=== PATIENT | female | born 1950 | race African-American/Black ===

== ENCOUNTER 2017-08-21 14:16 | Emergency (ER) | payer MEDICARE, MEDICAID ==
[~2017-08-21 14:16] MED LIST: ISOVUE-370 76%-LOCM 1 ML ONE
[2017-08-21 15:34] LABS: #Basophils 0.1 thou/uL (0.0-0.2); #Eosinphils 0.2 thou/uL (0.0-0.7); #Monocytes 0.5 thou/uL (0.11-0.59); #Neutrophils 4.2 thou/uL (1.40-6.50); %Basophils 1.1 % (0.0-1.0); %Lymphocytes 28.4 % (21.0-51.0); %Monocytes 7.4 % (0.0-10.0); %Neutrophils 60.1 % (42.0-75.0); Hemoglobin 12.4 g/dL (12.0-16.0); Mean Corpuscular HGB CONC 33.1 g/dL (32.0-36.0); Mean Corpuscular Hemoglobin 31.5 pg (27.0-31.0); Mean Corpuscular Volume 95.1 fl (81.0-99.0); Mean Platelet Volume 7.4 fL (7.4-10.4); Platelet Count 204 thou/uL (130-400); RBC Distribution Width 11.6 % (11.5-14.5); Red Blood Cell (RBC) Count 3.94 mill/uL (4.20-5.40)
[2017-08-21 15:55] LABS: ALT (SGPT) 12 U/L (8-55); AST (SGOT) 15 U/L (5-34); Alkaline Phosphatase 90 U/L (40-150); Anion Gap 11 mmol/L (10-20); BUN (Urea Nitrogen) 16 mg/dL (9.8-20.1); Bilirubin, Total 0.5 mg/dL (0.2-1.2); CK (CPK) 143 U/L (29-168); Calc. Creatinine Clearance 0 mL/min (70-130); Calcium 9.6 mg/dL (7.8-10.44); Carbon Dioxide 30 mmol/L (23-31); Chloride 105 mmol/L (98-107); Estimated GFR-MDRD Greater than 90; Globulin 3.2 g/dL (2.4-3.5); Glucose 98 mg/dL (80-115); Lipase 27 U/L (8-78); Potassium 3.2 mmol/L (3.5-5.1); Protein, Total 7.2 g/dL (6.0-8.3); Sodium 143 mmol/L (136-145)
[2017-08-21 15:59] LABS: CKMB 1.5 ng/mL (0-6.6); Troponin I Less than 0.010 ng/mL (< 0.028)
--- NOTE | 2017-08-21 17:05 | RAD ---
CHEST ONE VIEW 08/21/17 HISTORY: Chest pain. Chest radiograph 06/18/16. FINDINGS: three lead AICD/pacer is similar. No focal air space consolidation, pneumothorax or effusion. Calcifi c tendinosis left rotator cuff. There is sclerosis of the right humeral head which may reflect a healing fracture. IMPRESSION: No acute intrathoracic abnormality. POS: [facility]
--- NOTE | 2017-08-21 19:26 | CT ---
CTA THORAX WITH IV CONTRAST AND 3D REFORMATTED IMAGIN08/21/17 INDICATION: Cough with chills. COMPARISON: CT of the chest dated 06/18/16 and 01/23/02. There are patchy air space opacities within the right lower lobe suspicious for a pneumonitis. Mildly prominent right hilar and right mediastinal lymph nodes are stable. one of the most prominent seen w ithin the right infrahilar region measuring 1.8 cm which is stable from 06/18/16 and likely in 01/23/02 and upon most respective review. There are tiny sub 4 mm pulmonary nodules within the right lung whic h are stable. There is some reflux of contrast within the hepatic veins and IVC. The gallbladder is s urgically absent. No definite acute osseous abnormality is evident. IMPRESSION: 1. No central or segmental pulmonary embolus. 2. Patchy opacities within the right lower lobe suspicious for pneumonitis, infectious or inflam matory etiology. 3. Stable lymphadenopathy of the right hilar and right mediastinal region. The right infrahilar enlarged lymph node may have been present on a comparison in 2001 but due to slice thickness and slig ht variations in technique, difficult to fully confirm. Would recommend a followup examination in six months to document stability of the lymphadenopathy. 4. Findings as above. POS: [facility]
[2017-08-21 19:40] LABS: Bilirubin Small (Negative); Blood, Urine Negative (Negative); Clarity CLEAR (Clear); Glucose, Urine (Dipstick) Negative (Negative); Leukocyte Negative (Negative); Nitrite Negative (Negative); Protein, Urine (Dipstick) 30 mg/dL (Neg-Trace); pH, Urine 5.5 (5.0-9.0)
[2017-08-21 19:46] LABS: Bacteria/HPF None Seen HPF (None Seen); WBC/HPF 0-3 HPF (0-3)
[2017-08-21 19:47] LABS: Pathc Cast-AUWi Flag 5.27 (0-2.49)
[2017-08-21 19:55] LABS: Other Casts/LPF None Seen LPF (0-3 Hyaline); Oval Fat Bodies/HPF None Seen HPF (None Seen); Trichomonas/HPF None Seen HPF (None Seen); Yeast-All Forms None Seen HPF (None Seen)
[2017-08-21 20:11] LABS: Specific Gravity, Urine 1.086 (1.002-1.036)
== END 2017-08-21 21:40 | disposition home or self-care (01) ==
LOC: ERS 14:16
DX: J18.9 Pneumonia, unspecified organism (principal); I11.0 Hypertensive heart disease with heart failure; I50.9 Heart failure, unspecified; K21.9 Gastro-esophageal reflux disease without esophagitis; Z79.899 Other long term (current) drug therapy; Z79.82 Long term (current) use of aspirin
CPT/HCPCS: 36415; 71045; 71275; 80053; 81003; 81015; 82550; 82553; 83690; 83880; 84484; 85025; 85379; 93005; 94760; 96360

== ENCOUNTER 2017-08-22 21:33 | Emergency (ER) | payer MEDICARE, MEDICAID ==
[2017-08-22] MEDS ORDERED: Dexamethasone 10 MG/ML VIAL ONE (22:53)
--- NOTE | 2017-09-24 14:58 | EKG ---
Test Reason : Blood Pressure : / mmHG Vent. Rate : 076 BPM Atrial Rate : 076 BPM P-R Int : 214 ms QRS Dur : 106 ms QT Int : 378 ms P-R-T Axes : 061 012 032 degrees QTc Int : 425 ms Sinus rhythm with 1st degree A-V block Low voltage QRS Incomplete left bundle branch block Nonspecific T wave abnormality Abnormal ECG Confirmed by NICK BATISTA, RODNEY ([id number]), web editor MANE PÉREZ ([id number]) on 09/24/2017 2:57:23 PM Referred By: Confirmed By:RODNEY ROMERO MD
== END 2017-08-22 23:22 | disposition home or self-care (01) ==
LOC: ERS 21:33
DX: J18.9 Pneumonia, unspecified organism (principal); Z91.14 Patient's other noncompliance with medication regimen; I11.0 Hypertensive heart disease with heart failure; I50.9 Heart failure, unspecified; K21.9 Gastro-esophageal reflux disease without esophagitis
CPT/HCPCS: 93005; 96374; 96375; J0696; J1100

== ENCOUNTER 2017-08-27 10:45 | Observation (INO) | payer MEDICARE, MEDICAID ==
[2017-08-27 11:32] LABS: #Eosinphils 0.1 thou/uL (0.0-0.7); #Lymphocytes 3.3 thou/uL (1.20-3.40); #Monocytes 0.8 thou/uL (0.11-0.59); #Neutrophils 4.8 thou/uL (1.40-6.50); %Basophils 0.4 % (0.0-1.0); %Eosinophils 0.6 % (0.0-10.0); %Lymphocytes 36.9 % (21.0-51.0); %Monocytes 8.9 % (0.0-10.0); %Neutrophils 53.2 % (42.0-75.0); Hemoglobin 12.5 g/dL (12.0-16.0); Mean Corpuscular HGB CONC 32.9 g/dL (32.0-36.0); Mean Corpuscular Hemoglobin 31.3 pg (27.0-31.0); Mean Corpuscular Volume 95.1 fl (81.0-99.0); Mean Platelet Volume 7.3 fL (7.4-10.4); Platelet Count 259 thou/uL (130-400); RBC Distribution Width 11.6 % (11.5-14.5); Red Blood Cell (RBC) Count 3.98 mill/uL (4.20-5.40)
[2017-08-27 11:57] LABS: CKMB 2.7 ng/mL (0-6.6); Troponin I Less than 0.010 ng/mL (< 0.028)
[2017-08-27 12:06] LABS: ALT (SGPT) 30 U/L (8-55); AST (SGOT) 20 U/L (5-34); Albumin 3.7 g/dL (3.4-4.8); Alkaline Phosphatase 71 U/L (40-150); Anion Gap 11 mmol/L (10-20); BUN (Urea Nitrogen) 20 mg/dL (9.8-20.1); Bilirubin, Total 0.3 mg/dL (0.2-1.2); Calc. Creatinine Clearance 0 mL/min (70-130); Calcium 9.2 mg/dL (7.8-10.44); Carbon Dioxide 30 mmol/L (23-31); Chloride 102 mmol/L (98-107); Estimated GFR-MDRD 83; Globulin 2.8 g/dL (2.4-3.5); Glucose 103 mg/dL (80-115); Protein, Total 6.5 g/dL (6.0-8.3); Sodium 140 mmol/L (136-145)
[2017-08-27 12:13] LABS: Potassium 2.9 mmol/L (3.5-5.1)
[2017-08-27] MEDS ORDERED: Potassium Chloride 20 MEQ TAB ONE (13:09)
[2017-08-27] MEDS ORDERED: NS 0.9% w/ 20 MEQ KCL 1,000 ML IV SCH (13:15)
[2017-08-27] MEDS ORDERED: Ondansetron HCl/PF 4 MG/2 ML Vial IVP PRN (17:08)
[2017-08-27] MEDS ORDERED: HYDROcodone/Acetaminophen 5/325 mg Tablet PO PRN (17:08)
[2017-08-27] MEDS ORDERED: Mag-Al 1200 mg/1200 mg/30 ML UDCUP PO PRN (17:08)
[2017-08-27] MEDS ORDERED: hydrALAZINE 20 MG/ML VIAL SLOW IVP PRN (17:08)
[2017-08-27] MEDS ORDERED: NS 0.9% w/ 20 MEQ KCL 1,000 ML/1,000 ML BAG IV SCH (17:08)
[2017-08-27] MEDS ORDERED: Ondansetron ODT 4 MG TAB PO PRN (17:08)
[2017-08-27] MEDS ORDERED: Acetaminophen 325 MG TAB PO PRN (17:08)
[2017-08-27 17:22] VITALS: BMI 33.1
[2017-08-27] MEDS ORDERED: Potassium Chloride 20 MEQ TAB PO SCH (17:45)
--- NOTE | 2017-08-27 18:41 | HP ---
PRIMARY CARE PHYSICIAN: Dr. Cooley. CHIEF COMPLAINT: "Palpitations and sticking feeling in my chest." HISTORY OF PRESENT ILLNESS: Ms. Epstein is a very pleasant 67-year-old female, who has a history of no nischemic cardiomyopathy. She was in her usual state of health until one day prior to admission. Juan reid says she felt a pinprick like sensation in her chest like it was sticking and this happened about 4 times yesterday. She says that when it happened she felt dizzy and got lightheaded. It happened ag ain about 5:45 in the morning, it actually woke her from sleep. She felt a sticking sensation in her chest again and she got up to go to the bathroom and felt dizzy and very drained. She said this was really unusual and she felt she should come to the hospital to get it checked out. In the ER, she w as evaluated and it was found that her potassium was low at 2.9 and there was concern that she may hernandez ve had an arrhythmia. Her AICD was interrogated and it was found that she had a significant run of v entricular tachycardia yesterday and for this reason she is being placed in observation. The patient also notes that about a week ago, she was seen in the hospital due to cough and congestion. A CT an giogram was done at that time and she was found to have a pneumonia. She says that she has been donato demetrio with antibiotics, Levaquin, which she had in her purse and says that since she has been sick with pneumonia. She admits to having a poor appetite and poor oral intake. She is also on Lasix, but sa ys that she did skip the medications because she had been feeling well. She denies any nausea or vom iting, however. She also denies any diarrhea. She does say that her appetite has returned and she i s very hungry and feels like eating and basically does not have any symptoms at this time. REVIEW OF SYSTEMS: Constitutional: No fevers, chills, no night sweats, no weight loss. HEENT: She denies any headache, but she has had some dizziness and feeling lightheaded, no sore throat, no rhin orrhea, no neck pain, no adenopathy. Pulmonary: No hemoptysis, no cough, no wheezing. Cardiovascul ar: She denies any chest pain, no shortness of breath, no PND, no orthopnea except for the pinpricki ng sensation and occasional palpitation. Gastrointestinal: There has been no nausea, but she did hernandez ve some vomiting yesterday, no diarrhea, no blood in the stools, no hematemesis. Genitourinary: No urinary frequency, hematuria, no hesitancy. Neurologic: No focal weakness, numbness, no seizures. Psychiatric: No symptoms of anxiety or depression. Skin and Integument: No skin changes. No rash. PAST MEDICAL HISTORY: Significant for nonischemic cardiomyopathy with an ejection fraction of 35% to 40%, hypertension, hyperlipidemia, gastroesophageal reflux disease, obesity. PAST SURGICAL HISTORY: She has had an AICD placed in 2011 and a revision in 2016. She has had a car diac catheterization, which showed no flow-limiting disease. She has also had a cholecystectomy. ALLERGIES: CITRUS, but no drug allergies. SOCIAL HISTORY: She is a former smoker. She says she quit in 2006 cold , denies any alcohol u se. She is and has 3 children. Her daughter Magdalena Aguirre, she would like to be h er surrogate decision maker. She would like to stay a F[employer]. FAMILY HISTORY: Significant for heart disease. She has a brother and sister. Brother with the dylan brillator. Sister, she says needs one, but has refused to have one. CURRENT MEDICATIONS: She is on tizanidine 2 mg as needed, prednisone 20 mg taper, Levaquin 750 mg da sarah, Furosemide 20 mg daily. She is also on carvedilol, losartan, potassium, and aspirin. She does not know the doses and she says some type of stomach medicine. PHYSICAL EXAMINATION: GENERAL: She is alert and oriented. She appears to be in no acute distress. VITAL SIGNS: Blood pressure was 93/62, heart rate 62, respiratory rate of 14, temperature is 98.6. HEENT: Pupils are equal, round, and reactive. Extraocular muscles are intact. Her sclerae are anic teric. Throat: There is no erythema, no exudates. NECK: No adenopathy, no bruits. LUNGS: Clear to auscultation. I did not appreciate any wheezing or rales, no rhonchi. CARDIOVASCULAR: She has a normal S1, S2. I did not appreciate an S3 or S4. No murmurs, clicks or r ubs. ABDOMEN: Obese, it is soft, it is nontender, nondistended. Positive for bowel sounds. There is no rebound, no guarding. EXTREMITIES: No clubbing, cyanosis, no edema. NEUROLOGICALLY: The exam is nonfocal. LABORATORY DATA: White blood cell count is 9, hemoglobin 12.5, hematocrit is 37.9, platelet count is 259. Sodium 140, potassium 2.9, chloride is 102, CO2 is 30, BUN of 20, creatinine 0.83, glucose is 103. Troponin is less than 0.010. ASSESSMENT AND PLAN: This is a pleasant 67-year-old female that presented to the emergency room with a pinpricking like sensation in her chest. Unsure whether or not her AICD had fired and was found t o have some evidence of ventricular tachycardia during this symptomatic period. It is most likely th at the arrhythmias as a result of the low potassium. I suspect her potassium was low due to poor ora l intake and possibly compounded with the vomiting that she experienced, this has since resolved. Sh reid will be placed in observation. She is already on IV fluids with potassium supplementation. We farhad l likely give her a few oral doses as well. We will also check a magnesium level and replace if need ed and reassess her in the a.m. We will hold off on losartan and furosemide while she is on the IV f luids at least for today. These can likely be restarted tomorrow and consult Dr. Sibley tomorrow or one of his colleagues to see if any additional testing or workup need to be done.
[2017-08-27] MEDS: Carvedilol 25 MG TAB PO SCH (20:58)
[2017-08-27] MEDS ORDERED: Latanoprost 0.005% Ophth Soln 2.5 ml Bottle EA EYE SCH (21:00)
[2017-08-27] MEDS: cycloSPORINE 0.05% Ophthalmic Droperette EA EYE SCH (21:00)
[2017-08-27] MEDS: Heparin 5,000 UNITS/ML VIAL SC SCH (21:01)
[2017-08-28 05:24] LABS: Anion Gap 8 mmol/L (10-20); BUN (Urea Nitrogen) 20 mg/dL (9.8-20.1); Calc. Creatinine Clearance 106 mL/min (70-130); Calcium 8.2 mg/dL (7.8-10.44); Carbon Dioxide 29 mmol/L (23-31); Chloride 106 mmol/L (98-107); Estimated GFR-MDRD Greater than 90; Glucose 94 mg/dL (80-115); Potassium 4.1 mmol/L (3.5-5.1); Sodium 139 mmol/L (136-145)
[2017-08-28] MEDS ORDERED: Aspirin 325 mg Enteric Coated Tablet PO SCH (09:00)
[2017-08-28] MEDS ORDERED: Digoxin 0.125 MG TAB PO SCH (09:00)
[2017-08-28] MEDS ORDERED: Losartan 25 MG TAB PO SCH (09:00)
[2017-08-28] MEDS: cycloSPORINE 0.05% Ophthalmic Droperette EA EYE SCH (09:20)
[2017-08-28] MEDS: Potassium Chloride 20 MEQ TAB PO SCH ×2 (10:08→11:13)
[2017-08-28] MEDS: Heparin 5,000 UNITS/ML VIAL SC SCH (11:09)
[2017-08-28] MEDS: Carvedilol 25 MG TAB PO SCH (11:12)
--- NOTE | 2017-08-28 12:22 | PDOC.PN ---
- Subjective Encounter Start Date: 08/28/17 Encounter Start Time: 12:21 Ms. Epstein was seen today in follow-up. She does not have any complaints this morning. - Objective Resuscitation Status: Resuscitation Status FULL:Full Resuscitation MAR Reviewed: Yes Vital Signs & Weight: Vital Signs (12 hours) Temp Pulse Resp BP BP Pulse Ox 08/28/17 11:12 60 08/28/17 08:00 98.0 F 60 16 08/28/17 07:23 98.0 F 60 16 113/62 94 L 08/28/17 03:12 58 L 16 116/59 L 95 Weight Weight 189 lb 9.6 oz I&O: 08/27/17 08/28/17 08/29/17 06:59 06:59 06:59 Intake Total 652 Output Total 200 Balance 452 Result Diagrams: 08/27/17 11:23 08/28/17 04:12 Phys Exam - Physical Examination HEENT: PERRLA Respiratory: no wheezing, no rales, no rhonchi, clear to auscultation bilateral Cardiovascular: RRR, no significant murmur, no rub Gastrointestinal: soft, non-tender, no distention, positive bowel sounds Musculoskeletal: no edema Dx/Plan (1) Hypokalemia Code(s): E87.6 - HYPOKALEMIA Status: Acute (2) Chronic systolic heart failure Code(s): I50.22 - CHRONIC SYSTOLIC (CONGESTIVE) HEART FAILURE Status: Acute (3) Hyperlipidemia Code(s): E78.5 - HYPERLIPIDEMIA, UNSPECIFIED Status: Chronic (4) Hypertension Code(s): I10 - ESSENTIAL (PRIMARY) HYPERTENSION Status: Chronic - Plan * Hypokalemia- ? etiology could be related to diuretics and poor oral intake? * Arrhythmia- discussed with Dr. Bui- she is stable for discharge home. .
[2017-08-28 13:00] VITALS: BP 115/59; TEMP 97.8
--- NOTE | 2017-08-28 18:37 | CON ---
DATE OF CONSULTATION: 08/28/2017 CARDIOLOGY CONSULT NOTE DATE OF ADMISSION: 08/27/2017 INDICATION FOR CONSULTATION: This is a 67-year-old female with a history of nonischemic cardiomyopat hy, admitted with atypical type chest discomfort and also coughing. HISTORY OF PRESENT ILLNESS: This very unfortunate 67-year-old female who has a history of nonischemi c cardiomyopathy says she had a cardiac catheterization in 1987, which then had no evidence of signif icant coronary artery disease. She underwent an AICD implant due to nonischemic cardiomyopathy with decrease in ejection fraction. She has been followed by the greige goods examiner as well as by Dr. Lore bailey in the past. She has had no significant abnormalities. She has had no shocks from the AICD. R ecently, she had a pneumonia and had increasing coughing. When she presented to hospital, she had 2 episodes of significant diaphoresis and said she became somewhat nervous. When she arrived here, she was found to have hypokalemia with a potassium of 2.9. Interrogation of the device did show evidenc e of some short runs of nonsustained ventricular tachycardia, the longest was about 6 beats. She als o had what appeared to be possible atrial tachycardia which could have been atrial fibrillation or fl utter, but appeared to be very regular and may have actually been some artifact, although device may be trying to pace terminate, uncertain as to exactly whether or not she has a device that would pace terminate atrial fibrillation or not, actually would not be pace termination of atrial fibrillation, but may help prevent further atrial fibrillation by pacing, but did not appear to be the situation at this time. Otherwise, she has had no significant problems. She did complain of some sticking type sensation in the chest with some sharp shooting pains down the left arm, but these have since resolve d and she denies any significant complaints at this time. She has not been eating very well recently due to her recent pneumonia and she has also been drinking as much fluids, but has been continuing t o take her medications and this may be the etiology of some of her hypokalemia, but this appears to h ave corrected itself. Her potassium now is 4.1. She has no other significant abnormalities on the l aboratory data. Her cardiac enzymes are negative. Her EKG shows a normal sinus rhythm with occasion al pacing and ventricular sensing. Occasionally, she does have some ventricular pacing. Otherwise, AICD interrogation appears to be normal. Actually, her last change out was in 2016 and since that ti me has been doing quite well. PAST MEDICAL HISTORY: Significant for the nonischemic cardiomyopathy with history of hypertension, h yperlipidemia, gastroesophageal reflux disease, history of AICD implant. Ejection fraction was last reported at 35%-40%. ALLERGIES: She states she has allergies or problems with sutures, but no known drug allergies. MEDICATIONS: Prior to admission included aspirin, ophthalmic drops, Coreg 12.5 mg b.i.d., potassium 10 mEq daily, furosemide 20 mg b.i.d., losartan 25 mg a day, digoxin 0.125 mg half a tablet daily, le vofloxacin 750 mg a day which she has been on due to her recent pneumonia and she was taking codeine for her cough. SOCIAL HISTORY: She smoked in the past, but stopped in 2006. She has no significant alcohol use. S he has 3 children who are alive and well. FAMILY HISTORY: Positive for coronary artery disease. She also has a brother with cardiomyopathy an d a defibrillator. Her sister also has probably cardiomyopathy, but has refused to undergo an AICD i mplant. REVIEW OF SYSTEMS: She had no new HEENT complaints. She does complain of occasional blurred vision, but nothing new. She said this has been ongoing situation. She wears glasses. Chest: She complai burton of cough and some occasional shortness of breath, but otherwise no hemoptysis. She had no GI com plaints such as chronic nausea, vomiting or diarrhea. She had no complaints, dysuria or hematuria . Musculoskeletal: No lower extremity edema, no claudication. Neurologically, no history of seizur es or syncope. PHYSICAL EXAMINATION: GENERAL: Reveals a well-developed, well-nourished female who is in no acute distress. VITAL SIGNS: Her blood pressure is 116/59, heart rate is 60 and regular. She is afebrile, respirato ry rate 16. HEENT: Shows head to be normocephalic and atraumatic. Carotid pulses are present. There were no br uits. There is no JVD. The thyroid is not enlarged. Oral mucosa is pink and moist. CHEST: I did not hear any rales, rhonchi or wheezing. CARDIOVASCULAR: Exam reveals a regular rate and rhythm at this time. There were no ectopy. There i s no gross murmurs. ABDOMEN: Shows obesity with positive bowel sounds. No organomegaly or masses were noted. No tender ness. EXTREMITIES: Show no clubbing, cyanosis or edema. Pedal pulses are present. NEUROLOGIC: The patient appears to be intact. SKIN: Warm and dry. IMAGING DATA: Her EKG shows a normal sinus rhythm, occasional A pacing and V sensing and occasional ventricular pacing. Interrogation of the pacemaker was within normal limits except for some episodes of nonsustained ventricular tachycardia that was self terminated. There was no evidence of the hank ce pace terminating or no evidence of AICD shocks. There is some question of some atrial tachycardia and this will need to be further evaluated. This can be done as an outpatient by the electrophysiol ogist. IMPRESSION: 1. Nonischemic cardiomyopathy, which appears to be relatively stable. 2. History of atypical chest discomfort with sticking type sensations after pneumonia. There is no indication she has any ischemia. The cardiac enzymes are negative and EKG does not show any evidence of ischemia. She has not had a recent stress test or a cardiac catheterization. This may be someth ing that can be entertained also as an outpatient. She should follow up with Dr. Sibley for further discussion. 3. History of recent pneumonia. She will continue her antibiotics until they are completed. I did not hear any significant abnormalities on the chest on evaluation at this time. 4. History of hypertension. This is under very good control at this time. 5. History of hyperlipidemia. I did not see that she is on any statin medications at this time and these should be reinstated if the cholesterol level is elevated. 6. Hypokalemia. This may be due to her lack of p.o. intake, will need to be followed up as an outpa tient also. Otherwise, the patient appears to be doing quite well and could be discharged home today or tomorrow and can be followed as an outpatient. Would suggest she undergo an echocardiogram if on e has not been done within the last 2-3 months and could consider stress testing or possible cardiac catheterization since she has had her last cardiac catheterization was in 1987. ADDENDUM: Her last echocardiogram on record that I have is from 05/2016, which shows ejection fracti on of 20% to 25%. I did not see anymore recent echoes, I would suggest she undergo a more recent ech ocardiogram. This has been over a year ago. Her last stress test on record was in 04/2015, which sh owed ejection fraction 38% and no evidence of ischemia.
--- NOTE | 2017-08-28 21:14 | DIS ---
PRIMARY CARE PHYSICIAN: Dr. Cooley. DATE OF ADMISSION: 08/27/2017 DATE OF DISCHARGE: 08/28/2017 DISCHARGE DISPOSITION: Home. PRIMARY DISCHARGE DIAGNOSES: 1. Hypokalemia, questionable etiology. 2. Arrhythmia, likely secondary to #1. 3. Chronic systolic heart failure, the last ejection fraction was approximately 20% to 25% by echo i n 05/2016. 4. Hypertension. 5. Hyperlipidemia. 6. History of gastroesophageal reflux disease. DISCHARGE MEDICATIONS: Include aspirin 325 mg daily, carvedilol 12.5 mg twice a day, digoxin 0.5 mg daily, furosemide 20 mg twice a day, latanoprost 2.5 mg 1 drop in each eye at bedtime, Levaquin 750 m g daily, losartan 25 mg daily, potassium chloride 10 mEq daily, and Restasis 1 drop to each eye twice a day. CODE STATUS: FULL CODE. ALLERGIES: CITRUS DERIVATIVES. HOSPITAL COURSE: Ms. Epstein is a pleasant 67-year-old female, who presented to the emergency room aft er she noticed some pinprick like pains in her chest as well as having palpitations. She was evaluat ed in the emergency room and had the defibrillator interrogated and it appeared as if she had what ap peared to be ventricular tachycardia. It was also noted that her potassium was low at 2.9. For this reason, she was placed in observation. Her potassium was replaced. Magnesium level was checked and was normal. It is unclear why her potassium is low. However, she had recently been diagnosed with pneumonia and has had poor oral intake and had continued to take her Lasix. It is possible that this may have precipitated the low potassium level, and it is felt that the low potassium is what trigger ed the arrhythmia that she experienced. She was seen by Cardiology personnel clerk and it was felt that she should follow up with the chief digital media officer to further delineate the rhythm disturbance that she ex perienced. However, now that her potassium was replaced. This could be done on an outpatient basis and therefore she was discharged home to have close outpatient followup and she was instructed to hav e her primary care physician, recheck her potassium at that time.
== END 2017-08-28 13:47 | disposition home or self-care (01) ==
LOC: ERS 10:45 → 2SW 17:02
PROVIDERS: ADMIT Internal Medicine; ATTEND Internal Medicine
DX: E87.6 Hypokalemia (principal); I49.9 Cardiac arrhythmia, unspecified; I11.0 Hypertensive heart disease with heart failure; I50.22 Chronic systolic (congestive) heart failure; E78.5 Hyperlipidemia, unspecified; K21.9 Gastro-esophageal reflux disease without esophagitis; I42.8 Other cardiomyopathies; R07.89 Other chest pain; E66.9 Obesity, unspecified; Z68.35 Body mass index [BMI] 35.0-35.9, adult; Z79.52 Long term (current) use of systemic steroids; Z79.2 Long term (current) use of antibiotics; Z79.82 Long term (current) use of aspirin; Z79.899 Other long term (current) drug therapy; Z91.018 Allergy to other foods; Z95.810 Presence of automatic (implantable) cardiac defibrillator; Z90.49 Acquired absence of other specified parts of digestive tract; Z98.890 Other specified postprocedural states; Z87.891 Personal history of nicotine dependence; Z87.01 Personal history of pneumonia (recurrent)
CPT/HCPCS: 80048; 80053; 82553; 83735; 84484; 85025; 93005; 96361 ×2; 96374; 97139; 99285; G0378 ×2; 36415; J1644

== ENCOUNTER 2017-11-19 08:37 | Emergency (ER) | payer MEDICARE, MEDICAID ==
[2017-11-19] MEDS ORDERED: Acetaminophen 500 MG TAB ONE (09:55)
[2017-11-19 10:02] LABS: Hemoglobin 12.7 g/dL (12.0-16.0); Mean Corpuscular HGB CONC 33.3 g/dL (32.0-36.0); Mean Corpuscular Hemoglobin 30.8 pg (27.0-31.0); Mean Corpuscular Volume 92.6 fL (78.0-98.0); Mean Platelet Volume 7.4 fL (7.4-10.4); Platelet Count 187 thou/uL (130-400); RBC Distribution Width 11.5 % (11.5-14.5); Red Blood Cell (RBC) Count 4.13 mill/uL (4.20-5.40); White Blood Cell (WBC) Count 4.5 thou/uL (4.8-10.8)
[2017-11-19 10:24] LABS: ALT (SGPT) Less than 7 U/L (8-55); AST (SGOT) 13 U/L (5-34); Alkaline Phosphatase 80 U/L (40-150); Anion Gap 11 mmol/L (10-20); BUN (Urea Nitrogen) 15 mg/dL (9.8-20.1); Bilirubin, Total 0.4 mg/dL (0.2-1.2); Calc. Creatinine Clearance 0 mL/min (70-130); Calcium 9.6 mg/dL (7.8-10.44); Carbon Dioxide 27 mmol/L (23-31); Chloride 102 mmol/L (98-107); Estimated GFR-MDRD Greater than 90; Globulin 2.8 g/dL (2.4-3.5); Glucose 86 mg/dL (80-115); Potassium 3.7 mmol/L (3.5-5.1); Protein, Total 6.8 g/dL (6.0-8.3); Sodium 136 mmol/L (136-145)
[2017-11-19 10:28] LABS: CKMB 1.7 ng/mL (0-6.6); Troponin I Less than 0.010 ng/mL (< 0.028)
[2017-11-19 10:30] LABS: Band 1 % (5-11); Eosinophils 3 % (0-10); Lymphocytes 61 % (21-51); MDiff Complete? YES; Monocytes 8 % (0-10); Neutrophil 27 % (42-75); RBC Morphology Normal
--- NOTE | 2017-11-19 11:04 | CT ---
CT BRAIN WITHOUT CONTRAST: Date: 11/19/17 HISTORY: Intermittent headache. Changes in sensation to the left cheek. Tingling in the left upper arm and dif ficulty swallowing. FINDINGS: No evidence of acute infarct, hemorrhage, midline shift, or abnormal extra-axial fluid collections ar e seen. The ventricular size is normal and the basilar cisterns are patent. The bony calvarium is int act. The visualized paranasal sinuses and mastoid air cells are well aerated. IMPRESSION: No CT evidence of acute intracranial process. POS: [facility]
== END 2017-11-19 12:12 | disposition home or self-care (01) ==
LOC: ERS 08:37
DX: R51 Headache (principal); K21.9 Gastro-esophageal reflux disease without esophagitis; I50.9 Heart failure, unspecified; I11.0 Hypertensive heart disease with heart failure; Z79.82 Long term (current) use of aspirin; Z79.899 Other long term (current) drug therapy; Z87.891 Personal history of nicotine dependence
CPT/HCPCS: 36415; 70450; 80053; 82553; 84484; 85025; 85652; 93005

== ENCOUNTER 2017-12-27 09:46 | Outpatient (CLI) | payer MEDICARE | END 2017-12-27 09:47 | disposition home or self-care (01) | LOC: BICMAMMO 09:46 | PROVIDERS: ATTEND Family Medicine | DX: Z13.820 Encounter for screening for osteoporosis (principal); M85.88 Other specified disorders of bone density and structure, other site; Z78.0 Asymptomatic menopausal state | CPT/HCPCS: 77080 ==

== ENCOUNTER 2018-01-28 10:38 | Outpatient (CLI) | payer MEDICARE, MEDICAID | END 2018-01-28 10:39 | disposition home or self-care (01) | LOC: BICMAMMO 10:38 | PROVIDERS: ATTEND Family Medicine | DX: Z12.31 Encounter for screening mammogram for malignant neoplasm of breast (principal); N63.21 Unspecified lump in the left breast, upper outer quadrant | CPT/HCPCS: 77063; 77067 ==

== ENCOUNTER 2018-03-19 09:18 | Emergency (ER) | payer MEDICARE, OTHER ==
[2018-03-19 10:26] LABS: #Eosinphils 0.4 thou/uL (0.0-0.7); #Monocytes 0.7 thou/uL (0.11-0.59); #Neutrophils 5.8 thou/uL (1.40-6.50); %Basophils 0.2 % (0.0-1.0); %Eosinophils 4.1 % (0.0-10.0); %Lymphocytes 22.5 % (21.0-51.0); %Monocytes 7.9 % (0.0-10.0); %Neutrophils 65.2 % (42.0-75.0); Mean Corpuscular HGB CONC 31.8 g/dL (32.0-36.0); Mean Corpuscular Volume 94.4 fL (78.0-98.0); Mean Platelet Volume 8.3 fL (7.4-10.4); Platelet Count 250 thou/uL (130-400); RBC Distribution Width 12.2 % (11.5-14.5); White Blood Cell (WBC) Count 8.9 thou/uL (4.8-10.8)
[2018-03-19 10:47] LABS: ALT (SGPT) 9 U/L (8-55); AST (SGOT) 16 U/L (5-34); Albumin 4.2 g/dL (3.4-4.8); Alkaline Phosphatase 78 U/L (40-150); Anion Gap 12 mmol/L (10-20); BUN (Urea Nitrogen) 13 mg/dL (9.8-20.1); Bilirubin, Total 0.8 mg/dL (0.2-1.2); Calc. Creatinine Clearance 0 mL/min (70-130); Calcium 9.9 mg/dL (7.8-10.44); Carbon Dioxide 26 mmol/L (23-31); Chloride 105 mmol/L (98-107); Estimated GFR-MDRD Greater than 90; Globulin 3.2 g/dL (2.4-3.5); Glucose 94 mg/dL (80-115); Potassium 3.5 mmol/L (3.5-5.1); Protein, Total 7.4 g/dL (6.0-8.3); Sodium 139 mmol/L (136-145)
[2018-03-19 10:50] LABS: CKMB 2.4 ng/mL (0-6.6)
--- NOTE | 2018-03-19 10:55 | RAD ---
2 VIEWS CHEST: Date: 03/19/18 PROVIDED CLINICAL HISTORY: Productive cough. FINDINGS: Comparison with 08/21/17. Cardiac silhouette remains enlarged. Left subclavian cardiac pacing device is redemonstrated in stabl e position. No focal consolidation, pleural fluid, or pneumothorax apparent. Surgical clips overlie t he upper abdomen on the lateral view. IMPRESSION: No evidence for an acute cardiopulmonary process. POS: [facility]
== END 2018-03-19 11:29 | disposition home or self-care (01) ==
LOC: ERS 09:18
DX: J40 Bronchitis, not specified as acute or chronic (principal); I11.0 Hypertensive heart disease with heart failure; I50.9 Heart failure, unspecified; Z87.891 Personal history of nicotine dependence; Z79.899 Other long term (current) drug therapy
CPT/HCPCS: 71046; 80053; 82553; 83880; 84484; 85025; 93005; 94640; 94760; J7620

== ENCOUNTER 2018-06-01 15:16 | Inpatient (IN) | payer MEDICARE, OTHER ==
[2018-06-01 15:53] LABS: #Basophils 0.1 thou/uL (0.0-0.2); #Eosinphils 0.4 thou/uL (0.0-0.7); #Lymphocytes 2.2 thou/uL (1.20-3.40); #Monocytes 0.4 thou/uL (0.11-0.59); #Neutrophils 1.8 thou/uL (1.40-6.50); %Basophils 1.1 % (0.0-1.0); %Eosinophils 7.2 % (0.0-10.0); %Lymphocytes 45.5 % (21.0-51.0); %Monocytes 8.7 % (0.0-10.0); %Neutrophils 37.6 % (42.0-75.0); Mean Corpuscular HGB CONC 33.3 g/dL (32.0-36.0); Mean Corpuscular Hemoglobin 30.9 pg (27.0-31.0); Mean Corpuscular Volume 92.8 fL (78.0-98.0); Mean Platelet Volume 8.3 fL (7.4-10.4); Platelet Count 191 thou/uL (130-400); RBC Distribution Width 11.6 % (11.5-14.5); Red Blood Cell (RBC) Count 4.22 mill/uL (4.20-5.40); White Blood Cell (WBC) Count 4.9 thou/uL (4.8-10.8)
--- NOTE | 2018-06-01 15:56 | RAD ---
SINGLE VIEW CHEST: Date: 06/01/18 COMPARISON: 03/19/18. HISTORY: Tachycardia. Abnormal firing of cardiac pacemaker. FINDINGS: Single view of the chest shows normal sized cardiomediastinal silhouette. The pacemaker is unchanged in position. There is no evidence of consolidation, mass, or pleural effusion. Degenerative changes a re seen in the spine and shoulders. IMPRESSION: No evidence of acute cardiopulmonary disease. POS: [facility]
[2018-06-01 16:19] LABS: ALT (SGPT) 8 U/L (8-55); AST (SGOT) 13 U/L (5-34); Albumin 3.8 g/dL (3.4-4.8); Alkaline Phosphatase 80 U/L (40-150); Anion Gap 12 mmol/L (10-20); BUN (Urea Nitrogen) 15 mg/dL (9.8-20.1); Bilirubin, Total 0.3 mg/dL (0.2-1.2); Calc. Creatinine Clearance 0 mL/min (70-130); Calcium 9.8 mg/dL (7.8-10.44); Carbon Dioxide 24 mmol/L (23-31); Chloride 106 mmol/L (98-107); Estimated GFR-MDRD 83; Globulin 2.8 g/dL (2.4-3.5); Glucose 116 mg/dL (80-115); Potassium 4.1 mmol/L (3.5-5.1); Protein, Total 6.6 g/dL (6.0-8.3); Sodium 138 mmol/L (136-145)
[2018-06-01 20:30] LABS: Troponin I Less than 0.010 ng/mL (< 0.028)
[2018-06-01] MEDS ORDERED: Enoxaparin Sodium 80 MG/0.8 ML SYRINGE ONE (20:30)
[2018-06-01] MEDS ORDERED: Ondansetron ODT 4 MG TAB SL PRN (21:43)
[2018-06-01] MEDS ORDERED: Ondansetron PF 4 MG/2 ML Vial IVP PRN (21:43)
[2018-06-01 21:45] VITALS: BMI 31.8
[2018-06-01 21:47] LABS: Bilirubin Negative (Negative); Blood, Urine Negative (Negative); Clarity CLEAR (Clear); Glucose, Urine (Dipstick) Negative (Negative); Leukocyte Negative (Negative); Nitrite Negative (Negative); Protein, Urine (Dipstick) Negative (Neg-Trace); Specific Gravity, Urine 1.025 (1.002-1.036); pH, Urine 6.5 (5.0-9.0)
[2018-06-01 23:44] LABS: Troponin I Less than 0.010 ng/mL (< 0.028)
[2018-06-02] MEDS ORDERED: Acetaminophen 325 MG TAB PO PRN (01:43)
[2018-06-02] MEDS ORDERED: Bisacodyl 5 MG TAB PO PRN (01:43)
[2018-06-02] MEDS ORDERED: Bisacodyl 10 MG SUPP PR PRN (01:43)
[2018-06-02] MEDS ORDERED: Senokot S 8.6-50 MG TAB PO PRN (01:43)
[2018-06-02] MEDS ORDERED: Zolpidem Tartrate 5 MG TAB PO PRN (01:43)
[2018-06-02] MEDS ORDERED: Calcium Carbonate 500 MG ChewTAB PO PRN (01:43)
[2018-06-02 05:55] LABS: #Eosinphils 0.4 thou/uL (0.0-0.7); #Lymphocytes 2.1 thou/uL (1.20-3.40); #Monocytes 0.6 thou/uL (0.11-0.59); #Neutrophils 1.5 thou/uL (1.40-6.50); %Basophils 0.7 % (0.0-1.0); %Eosinophils 7.8 % (0.0-10.0); %Lymphocytes 45.5 % (21.0-51.0); %Monocytes 12.9 % (0.0-10.0); %Neutrophils 33.1 % (42.0-75.0); Hemoglobin 11.7 g/dL (12.0-16.0); Mean Corpuscular HGB CONC 31.2 g/dL (32.0-36.0); Mean Corpuscular Hemoglobin 29.3 pg (27.0-31.0); Mean Platelet Volume 8.5 fL (7.4-10.4); Platelet Count 168 thou/uL (130-400); RBC Distribution Width 11.7 % (11.5-14.5); Red Blood Cell (RBC) Count 3.98 mill/uL (4.20-5.40); White Blood Cell (WBC) Count 4.6 thou/uL (4.8-10.8)
[2018-06-02 06:26] LABS: Anion Gap 12 mmol/L (10-20); BUN (Urea Nitrogen) 15 mg/dL (9.8-20.1); Calc. Creatinine Clearance 87 mL/min (70-130); Calcium 9.2 mg/dL (7.8-10.44); Carbon Dioxide 26 mmol/L (23-31); Chloride 107 mmol/L (98-107); Estimated GFR-MDRD Greater than 90; Glucose 96 mg/dL (80-115); Potassium 3.7 mmol/L (3.5-5.1); Sodium 141 mmol/L (136-145)
[2018-06-02] MEDS: Potassium Chloride 10 MEQ TAB PO SCH (08:07)
[2018-06-02] MEDS: Furosemide 20 MG TAB PO SCH ×2 (08:08→13:22)
[2018-06-02] MEDS: Digoxin 0.125 MG TAB PO SCH (08:08)
[2018-06-02] MEDS: Carvedilol 6.25 MG TAB PO SCH ×2 (08:09→20:37)
[2018-06-02] MEDS: Aspirin 325 mg Enteric Coated Tablet PO SCH (08:09)
[2018-06-02] MEDS: Losartan 25 MG TAB PO SCH (08:10)
--- NOTE | 2018-06-02 08:26 | HP ---
CHIEF COMPLAINT: Chest discomfort. HISTORY OF PRESENT ILLNESS: This is a 68-year-old female with past medical history of CHF, GERD, hypertension, presented to our ED with a chief complaint of having a chest discomfort. Per patient, she feels like her defibrillator fired. The patient states that she felt that there was a shock in her heart at 11:00 a.m. on the day of admission. The patient stated that it caused some chest discomfort, it was dull-like pain and that prompted her to come to the ED to be evaluated. At this point, the patient denies any fever, chills, nausea, vomiting, chest pain, palpitation, abdominal pain, constipation, diarrhea, dysuria, hematuria, melena, or hematochezia. Of note, the patient was recently in our hospital on 08/27/2017 with similar episode of having chest discomfort due to possible arrhythmia or shock. At the time, the patient called it a pinprick-like sensation. The patient was admitted and the patient's defibrillator at that time was interrogated since the patient had what appeared to be a ventricular tachycardia. Cardiology was consulted and Cardiology saw the patient during the time and during the whole workup, the patient was also found to have hypokalemia. Per records, since that the patient's arrhythmia was attributed to patient's hypokalemia. The patient felt better and the patient was discharged home. The patient was advised to follow up with the primary care physician to recheck her potassium. REVIEW OF SYSTEM: All systems have been reviewed and at this time, negative. PAST MEDICAL HISTORY: CHF, GERD, and hypertension. PAST SURGICAL HISTORY: Status post AICD placement in 2006, wires rewired in 2011 and 2015. The patient had history of cholecystectomy and hysterectomy, partial. PSYCHIATRIC HISTORY: No previous psych history. SOCIAL HISTORY: The patient denies alcohol use. Denies any illicit drugs and the patient is a former smoker. The patient quit smoking in 2006. FAMILY HISTORY: Reviewed and noncontributory. ALLERGIES: THE PATIENT IS ALLERGIC TO CITRUS AND ITS DERIVATIVES. CURRENT MEDICATIONS: 1. The patient is on carvedilol. 2. The patient is on digoxin. 3. Potassium. 4. Losartan. 5. Furosemide. 6. Aspirin. PHYSICAL EXAMINATION: VITAL SIGNS: The patient's blood pressure is 142/82, pulse of 84, respiratory rate of 18, temperature of 98.7, O2 saturation of 99. GENERAL: The patient is alert and oriented x3, not in acute distress. The patient is lying in bed comfortably. The patient is able to speak to me in full sentences. HEENT: Normocephalic, atraumatic. Pupils are equally round and reactive to light. Extraocular movements are intact. No scleral icterus. No conjunctival pallor. Mucous membranes are moist. NECK: Trachea is midline. Full range of motion. No tracheal deviation. Supple. LUNGS: Clear to auscultation bilaterally. No wheezing, no rales, no rhonchi appreciated. CARDIAC: Positive S1 and S2. Regular rate and rhythm. No murmurs. No gallops. No rubs appreciated. ABDOMEN: Soft, nontender, and nondistended. Positive bowel sounds in all quadrants. No peritoneal signs. No rigidity. No guarding. EXTREMITIES: The patient has 5/5 upper extremity strength. Good pulses bilaterally of the upper extremity and 5/5 lower extremity. No edema noted. Good pulses bilaterally at the lower extremities. NEUROLOGIC: Cranial nerves 2 through 12 grossly intact. No neurologic deficits noted. SKIN: Warm, dry, and intact. PSYCH: The patient has normal affect, alert, oriented x3. Pleasant. DIAGNOSTIC DATA: EK-lead EKG shows ventricular paced rhythm. ED COURSE: The patient received; 1. Lovenox 1 mg/kg. 2. Aspirin 324. LABORATORY DATA: WBC is 4.9, hemoglobin is 13, hematocrit is 39.1, platelets 191. Electrolytes; sodium is 138, potassium is 4.1, chloride is 106, carbon dioxide of 24, anion gap of 12, BUN is 15, creatinine is 0.83, glucose is 116. BNP is 292.7. Troponin has been negative x3. Urinalysis; negative. ASSESSMENT AND PLAN: This is a 68-year-old female, being admitted for; 1. Chest discomfort, likely due to automatic internal cardiac defibrillator event. At this time, the patient is currently stable, does not appear to be in any distress. We have consulted Cardiology, and the patient's defibrillator is going to be interrogated. We will follow up on morning EKG. We will follow up with Cardiology regarding any further recommendations. We will continue the patient on current management of gentle IV hydration. We will continue the patient on her home medications. 2. History of congestive heart failure: At this point, the patient is stable, does not appear to be in any acute heart failure. We will continue the patient's home medications. 3. Hypertension. Currently, we will continue the patient on home medications. The patient's blood pressure is normotensive at this time. We will monitor the patient's blood pressure closely and will treat accordingly. 4. Coronary artery disease, status post AICD. We will continue the patient on home medications. 5. Deep vein thrombosis and gastrointestinal prophylaxis addressed. Job ID: [id number]
[2018-06-02] MEDS ORDERED: Enoxaparin Sodium 40 MG/0.4 ML SYRINGE SC SCH (09:00)
[2018-06-02] MEDS ORDERED: Non-Formulary Item 1 EACH (Carvedilol [Carvedilol] 12.5 MG) PO SCH (09:00)
[2018-06-02] MEDS ORDERED: Furosemide 20 MG TAB PO SCH (09:00)
--- NOTE | 2018-06-02 09:11 | PDOC.PN ---
- Subjective Encounter Start Date: 06/02/18 Encounter Start Time: 09:09 Patient lying in bed, she reports no events over night. Here for possible AICD firing. Cardiology consulted and AICD interrogated. She reports mild chest discomfort that is improved, denies shortness of breath or abdominal pain. She reports going through a rough time with living situation and is currently sleeping in car. - Objective Resuscitation Status - Order Detail: 06/02/18 01:43 Resuscitation Status Routine Resuscitation Status: FULL: Full Resuscitation MAR Reviewed: Yes Vital Signs & Weight: Vital Signs (12 hours) Temp Pulse Resp BP Pulse Ox 06/02/18 08:08 57 L 06/02/18 07:31 98.2 F 57 L 16 95/54 L 97 06/02/18 04:12 97.9 F 62 16 112/62 98 06/01/18 23:00 64 16 127/59 L 100 Weight Weight 171 lb 3.2 oz I&O: 06/01/18 06/02/18 06/03/18 06:59 06:59 06:59 Intake Total 590 Balance 590 Result Diagrams: 06/02/18 05:29 06/02/18 05:29 Radiology Reviewed by me: Yes EKG Reviewed by me: Yes Phys Exam - Physical Examination Constitutional: NAD HEENT: PERRLA, moist MMs, sclera anicteric, oral pharynx no lesions Neck: no nodes, no JVD, supple Respiratory: no wheezing, no rales, no rhonchi, clear to auscultation bilateral Cardiovascular: RRR, no significant murmur, no rub Gastrointestinal: soft, non-tender, no distention, positive bowel sounds Musculoskeletal: no edema, pulses present Neurological: non-focal, normal sensation, moves all 4 limbs Lymphatic: no nodes Psychiatric: normal affect, A&O x 3 Skin: no rash, normal turgor, cap refill <2 seconds Dx/Plan (1) Chronic systolic heart failure Code(s): I50.22 - CHRONIC SYSTOLIC (CONGESTIVE) HEART FAILURE Status: Acute (2) Congestive heart failure Code(s): I50.9 - HEART FAILURE, UNSPECIFIED Status: Chronic (3) GERD (gastroesophageal reflux disease) Code(s): K21.9 - GASTRO-ESOPHAGEAL REFLUX DISEASE WITHOUT ESOPHAGITIS Status: Chronic (4) Hyperlipidemia Code(s): E78.5 - HYPERLIPIDEMIA, UNSPECIFIED Status: Chronic (5) Hypertension Code(s): I10 - ESSENTIAL (PRIMARY) HYPERTENSION Status: Chronic (6) Atypical chest pain Code(s): R07.89 - OTHER CHEST PAIN Status: Acute - Plan cont current plan of care, DVT proph w/lovenox * Continue home medications * Monitor vitals and labs * Cardiology services following * AICD interrogated * Consult placed for egg caser to assist in disposition as she lives in her car
--- NOTE | 2018-06-02 17:19 | EKG ---
Test Reason : Blood Pressure : / mmHG Vent. Rate : 070 BPM Atrial Rate : 070 BPM P-R Int : 258 ms QRS Dur : 092 ms QT Int : 354 ms P-R-T Axes : 072 074 069 degrees QTc Int : 382 ms Sinus rhythm with 1st degree A-V block Low voltage QRS Cannot rule out Anterior infarct , age undetermined Nonspecific ST-T changes Abnormal ECG When compared with ECG of 01-JUN-2018 15:22, (Unconfirmed) Sinus rhythm has replaced Electronic ventricular pacemaker Confirmed by DR. Tammy BAR ([id number]) on 06/02/2018 5:18:57 PM Referred By: JANAE Confirmed By:DR. Tammy BAR
--- NOTE | 2018-06-02 20:29 | CON ---
DATE OF CONSULTATION: 06/02/2018 REFERRING PHYSICIAN: Dr. Kee Tinoco. REASON FOR CONSULTATION: Atrial fibrillation and nonsustained ventricular tachycardia. HISTORY OF PRESENT ILLNESS: Ms. Watson is the patient known to our practice for a history of paroxysmal atrial fibrillation of low burden as well as nonsustained ventricular tachycardia and inclusion of a dual-chamber ICD. She was last seen on April 21, [address] Shipman. At that time, she had low burden atrial fibrillation up to 6 hours. The plan was to initiate Eliquis, but she had very severe headache and she was going to go to the emergency room for further evaluation and head CT before starting her Eliquis. She did not end up going to the emergency room and she did not fill or start her Eliquis. Her nonsustained VT is monitored at this point and treated with continued beta-reddy therapy. She has been minimally symptomatic of her atrial fibrillation in the past. Her ICD was interrogated upon her arrival to [facility] and erratically, she went into a 46-hour episode of atrial fibrillation 6 hours after leaving her last appointment on April 21. It is terminated spontaneously and she has had no recurrences since that time. She continues to have low burden of nonsustained ventricular tachycardia. She did present to the emergency room in atrial fibrillation and converted over the night and is currently in sinus rhythm. She presented to the emergency room for concern of AICD firing with some associated mild chest discomfort. She endorses shortness of breath that has persisted since March and slightly progressive. She denies any heart racing, palpitations, syncope, near syncope, stroke, or stroke-like symptoms. She denies any heart failure symptoms of weight gain or progressive swelling of the extremities. She does report some unintentional weight loss. She has a high stress level currently. She is homeless and living in her car. REVIEW OF SYSTEMS: A 12-point review of systems was conducted and is negative except that listed above in the HPI. PAST MEDICAL HISTORY: 1. Chronic systolic heart failure with nonischemic cardiomyopathy. a. Nuclear scan from 05/22/2015, showing LV ejection fraction of 30% with no ischemia. b. Two-dimensional echo on 04/25/2016 showing LVEF of 35% to 40%. c. Diastolic dysfunction with [id number] tricuspid regurgitation. 2. Dual-chamber Medtronic pacemaker defibrillator placed in 02/2015, atrial lead fracture requiring revision on 02/11/2016. 3. Sinus node dysfunction. 4. Obesity. 5. Hyperlipidemia. 6. Paroxysmal atrial fibrillation, low burden. 7. Nonsustained ventricular tachycardia. ALLERGIES: NONE. MEDICATIONS: Include: 1. Latanoprost 1 drop each eye at bedtime. 2. Digoxin half a tablet p.o. daily. 3. Furosemide 20 mg p.o. b.i.d. 4. Potassium chloride 10 mEq p.o. daily. 5. Losartan potassium 25 mg p.o. daily. 6. Carvedilol 12.5 mg p.o. b.i.d. 7. Aspirin 325 mg p.o. daily. FAMILY HISTORY: Positive for heart disease. Has a brother with a defibrillator. SOCIAL HISTORY: Former smoker, quit in 2006. Denies alcohol use. She is with 3 children. She is a full code. She is currently living in her car. PHYSICAL EXAMINATION: VITAL SIGNS: Temperature 98.3, pulse 62, blood pressure 115/60, and oxygen is 97% on room air. GENERAL: The patient is well groomed, well nourished, alert, and oriented. Speech is clear. Affect is somewhat tearful, but otherwise appropriate and a good historian. HEENT: She is normocephalic and atraumatic. Sclerae anicteric. EOMs are intact. Oral mucosa is moist and pink with adequate dentition. NECK: Supple without jugular venous distention. Thyroid is nonpalpable. LUNGS: Clear to auscultation bilaterally without wheezes, crackles, or rhonchi. Her respirations are even and unlabored. CARDIOVASCULAR: Heart rate is irregularly irregular with crisp S1 and S2. No significant murmur or gallop. Her precordial device that is seated at the left infraclavicular fossa without reaction. ABDOMEN: Soft, nontender, and obese without palpable masses and positive bowel sounds are noted throughout. EXTREMITIES: Warm and dry to touch without clubbing, cyanosis, or edema. NEUROLOGIC: Grossly intact and nonfocal, and gait was not assessed. DATABASE: Telemetry and EKG were all personally reviewed and currently reflect sinus rhythm with ventricular rates in the 60s. There is a limited first degree AV block. Initially, she was in atrial fibrillation with slow ventricular response and frequent RV pacing during her atrial arrhythmia. Device check, the patient has a [employer] Evera XT DR, date of implant is 02/10/2016. Battery longevity is 8.3 years. Lead impedances are stable. Atrial capture threshold 0.65 V at 0.4 milliseconds. RV capture threshold is 1.125 V at 0.4 milliseconds. There was adequate sensing, current mode AAIR to DDDR, lower rate limit of 60. Two episodes of atrial arrhythmias have been detected since last interrogation on 04/21/2018. First one was 47-hour episode starting on 2017. The second one initiated on 05/31/2018 and terminated overnight. Overall, burden is 5.6%, which is largely reflected by that 2-day episode in late March. There have been no ventricular arrhythmias. No shocks. No ATP terminated ventricular arrhythmias. AP is 52.8%, MUD ANALYSIS OPERATOR 3.9%. Ventricular pacing occurs when she is in atrial fibrillation. OptiVol fluid index suggests ongoing fluid accumulation starting in mid April and exceeded 60 ohm threshold in approximately the start of the year. Otherwise, normally functioning device. No reprogramming changes were made. LABORATORY DATA: Hematology was reviewed. WBC 4.6, hemoglobin 11.7, platelet count of 168. Chemistry; potassium 3.7, creatinine 0.76, creatinine clearance calculated is 87 mL per minute. Serial troponins were negative. BNP is 292. TSH 1.9. Chest x-ray on 06/01/2018, no acute cardiopulmonary disease. IMPRESSION: 1. Nonischemic cardiomyopathy. 2. Inclusion of a dual-chamber ICD with normal operation. 3. Paroxysmal atrial fibrillation, low burden, but with single prolonged episode of nearly 48 hours. 4. Chronic headaches. 5. Nonsustained ventricular tachycardia. 6. CHADS-VASc score of 4 on the basis of female gender, age, hypertension, and cardiomyopathy. OAC is indicated, but was not started as prescribed in the past. RECOMMENDATIONS: This woman is doing well from a device standpoint. Her device is functioning normally, and she did not have any ICD discharges. She continues to have low burden of nonsustained ventricular tachycardia. Her atrial fibrillation burden remains quite low at approximately 5% even with a 48-hour episode in the recent past. She is not anticoagulated currently and I suspect that with her current housing that challenges in living in her car that Eliquis would not be an option for her as her resources are quite limited at this time. We will start OAC and hopefully she will be able to continue upon DC. She has cardiomyopathy with severely reduced ejection fraction, ruling out class 1C antiarrhythmic options for AF suppression. Her creatinine clearance and kidney function are well preserved and consideration could be given toward sotalol.The only EKG available in the chart was while she was in a paced rhythm and atrial fibrillation artificially prolonging her QTc. Now, she is in sinus rhythm. I have ordered a 12-lead EKG to get a baseline QTc. If less than 450 milliseconds, then we can initiate sotalol and monitor her for 3 days while initiating this medications to suppress her atrial arrhythmias. I briefly discussed ablation with her as well, which can be further discussed as an outpatient in routine followup. Thank you for allowing us to participate in care of this patient. Job ID: [id number] STEVE
[2018-06-02] MEDS: Latanoprost 0.005% Ophth Soln 2.5 ml Bottle EA EYE SCH (20:37)
[2018-06-02] MEDS: Enoxaparin Sodium 80 MG/0.8 ML SYRINGE SC SCH (20:37)
--- NOTE | 2018-06-03 04:25 | CON ---
DATE OF CONSULTATION: HISTORY OF PRESENT ILLNESS: The patient is a 68-year-old woman who presents with left-sided chest discomfort, was noted to be in a regular heart rhythm. The patient has a history of nonischemic cardiomyopathy. She has previously had placement of an automatic implantable cardiac defibrillator. The patient was here in August with atypical chest discomfort. She presents once again with left-sided chest discomfort. She states that she felt like her AICD had fired. She reports having persistent discomfort. The patient was seen in the emergency room and noted to have regular heart rhythm, and was treated with Lovenox. The patient denies any present chest discomfort. PAST MEDICAL HISTORY: 1. Cardiomyopathy. 2. Hypertension. PAST SURGICAL HISTORY: Cholecystectomy and hysterectomy. SOCIAL HISTORY: Nonsmoker. ALLERGIES: SHE IS ALLERGIC TO CITRUS. MEDICATIONS: Include: 1. Digoxin 0.5 daily. 2. Lasix 20 daily. 3. KCl 10 daily. 4. Losartan 25 daily. 5. Coreg 12.5 b.i.d. 6. Aspirin 81 daily. FAMILY HISTORY: Positive family history of cardiomyopathy. PHYSICAL EXAMINATION: VITAL SIGNS: Elderly woman, in no acute distress with a blood pressure of 115/60. NECK: Showed no jugular venous distention. LUNGS: Clear to auscultation. HEART: Regular rate and rhythm. Normal S1 and S2. No murmurs. ABDOMEN: Distended. EXTREMITIES: Trace edema. VASCULAR: Radial pulses are 2+. LABORATORY RESULTS: Revealed her to have a sodium 141, potassium 3.7, chloride 107, bicarb 26, BUN 15, creatinine 0.76, troponin less than 0.01, BNP is 292. White blood cell count 4.6, hemoglobin 11.7, hematocrit 37.4, and platelets 168. Her EKG revealed her to have atrial fibrillation with ventricular paced response. IMPRESSION: 1. New onset atrial fibrillation. 2. Chest pain, atypical. 3. History of cardiomyopathy. 4. Hypertension. 5. History of AICD placement. This patient presents with new onset atrial fibrillation. We would continue the patient on subcutaneous Lovenox. We will obtain an EP consultation to see whether she should be placed on antiarrhythmic drug, would consider treating the patient with Betapace and she appears to be symptomatic. We will follow this patient with you through her hospitalization. Job ID: [id number]
[2018-06-03] MEDS: Digoxin 0.125 MG TAB PO SCH (08:43)
[2018-06-03] MEDS: Aspirin 325 mg Enteric Coated Tablet PO SCH (08:43)
[2018-06-03] MEDS: Carvedilol 6.25 MG TAB PO SCH ×2 (08:43→20:01)
[2018-06-03] MEDS: Furosemide 20 MG TAB PO SCH ×2 (08:43→16:41)
[2018-06-03] MEDS: Losartan 25 MG TAB PO SCH (08:43)
[2018-06-03] MEDS: Potassium Chloride 10 MEQ TAB PO SCH (08:45)
[2018-06-03] MEDS: Enoxaparin Sodium 80 MG/0.8 ML SYRINGE SC SCH (08:48)
[2018-06-03] MEDS ORDERED: Sotalol HCl 80 MG TAB PO SCH ×2 (10:27→10:45)
--- NOTE | 2018-06-03 15:39 | PDOC.CTH ---
Cardiology Progress Note - Subjective EP PROGRESS NOTE: 06/03/18 Seen as follow up follow up for A.Fib, ICD management and medication management. no new cardiac concerns today. C/o chills and thinks she is getting a cold. - Objective Vital Signs Temp Pulse Resp BP Pulse Ox 06/03/18 11:20 98.7 F 61 18 91/55 L 99 06/03/18 07:28 97.9 F 67 15 133/71 95 06/03/18 04:10 98.6 F 60 13 120/63 97 Weight 171 lb 3.2 oz 06/02/18 06/03/18 06/04/18 06:59 06:59 06:59 Intake Total 590 1280 Output Total 1375 900 Balance 590 -95 -900 - Physical Examination General/Neuro: alert & oriented x3, NAD, other: (chills) Neck: carotid US brisk, no JVD present Lungs: CTA, unlabored respirations Heart: PMI normal, RRR Abdomen: NT/ND, soft - Telemetry Telemetry Rhythm: SR - Labs Result Diagrams: 06/02/18 05:29 06/02/18 05:29 Troponin/CKMB Troponin I Less than 0.010 ng/mL (< 0.028) 06/01/18 22:39 - Assessment/Plan 1. Paroxysmal atrial fibrillation -starting sotalol tonight. Baseline QTc <400ms. Needs 12 lead EKG 2 hrs after first 6 doses of sotalol to monitor for QTc prolongation. If prolongation seen, will require reduced dose. 2. CHADS-VASC: 3 - started on eliquis 5mg BID. watch for signs of bleeding 3. Dual chamber ICD, medtronic - normal operation. Interrogation reviewed: no shocks. occasional NSVT. low burden AF 4. NSVT 5. Non ischemic cardiomyopathy Start sotalol tonight and will be managed by cardiology over the weekend. EKGs ordered through tomorrow evening. Continue eliquis. I will see her Wednesday.
--- NOTE | 2018-06-03 18:30 | PDOC.PN ---
- Subjective Encounter Start Date: 06/03/18 Encounter Start Time: 18:28 Patient lying in bed without complaints. EP following and started patient on sotalol today. She denies chest pain, palpitation, shortness of breath or abdominal pain. - Objective Resuscitation Status - Order Detail: 06/02/18 01:43 Resuscitation Status Routine Resuscitation Status: FULL: Full Resuscitation MAR Reviewed: Yes Vital Signs & Weight: Vital Signs (12 hours) Temp Pulse Resp BP Pulse Ox 06/03/18 15:21 98.4 F 61 16 104/59 L 98 06/03/18 11:20 98.7 F 61 18 91/55 L 99 06/03/18 07:28 97.9 F 67 15 133/71 95 Weight Weight 171 lb 3.2 oz I&O: 06/02/18 06/03/18 06/04/18 06:59 06:59 06:59 Intake Total 590 1280 1200 Output Total 1375 900 Balance 590 -95 300 Result Diagrams: 06/02/18 05:29 06/02/18 05:29 Phys Exam - Physical Examination Constitutional: NAD HEENT: PERRLA, moist MMs, oral pharynx no lesions Neck: no nodes, no JVD, supple, full ROM Respiratory: no wheezing, no rales, no rhonchi, clear to auscultation bilateral Cardiovascular: RRR, no significant murmur, no rub Gastrointestinal: soft, non-tender, no distention, positive bowel sounds Musculoskeletal: no edema, pulses present Neurological: non-focal, normal sensation, moves all 4 limbs Lymphatic: no nodes Psychiatric: normal affect, A&O x 3 Skin: no rash, normal turgor, cap refill <2 seconds Dx/Plan (1) Chronic systolic heart failure Code(s): I50.22 - CHRONIC SYSTOLIC (CONGESTIVE) HEART FAILURE Status: Acute (2) Congestive heart failure Code(s): I50.9 - HEART FAILURE, UNSPECIFIED Status: Chronic (3) GERD (gastroesophageal reflux disease) Code(s): K21.9 - GASTRO-ESOPHAGEAL REFLUX DISEASE WITHOUT ESOPHAGITIS Status: Chronic (4) Hyperlipidemia Code(s): E78.5 - HYPERLIPIDEMIA, UNSPECIFIED Status: Chronic (5) Hypertension Code(s): I10 - ESSENTIAL (PRIMARY) HYPERTENSION Status: Chronic (6) Atypical chest pain Code(s): R07.89 - OTHER CHEST PAIN Status: Acute - Plan cont current plan of care * Continue Sotalol per EP services Dr Lundberg, monitor EKG changes * Patient currently asymptomatic * Continue on other home medications * Monitor over next 48-72 hours and if stable from EP will likely discharge home * manager community relations assisting in disposition as she lives in her car
[2018-06-03] MEDS: Latanoprost 0.005% Ophth Soln 2.5 ml Bottle EA EYE SCH (20:00)
[2018-06-03] MEDS: Sotalol HCl 80 MG TAB PO SCH (20:01)
[2018-06-03] MEDS: Apixaban 5 MG TAB PO SCH (20:01)
[2018-06-04] MEDS: Apixaban 5 MG TAB PO SCH ×2 (08:52→20:33)
[2018-06-04] MEDS: Carvedilol 6.25 MG TAB PO SCH (08:52)
[2018-06-04] MEDS: Losartan 25 MG TAB PO SCH (08:53)
[2018-06-04] MEDS: Sotalol HCl 80 MG TAB PO SCH ×2 (08:53→20:33)
[2018-06-04] MEDS: Furosemide 20 MG TAB PO SCH ×2 (08:53→13:30)
[2018-06-04] MEDS: Digoxin 0.125 MG TAB PO SCH (08:53)
[2018-06-04] MEDS: Aspirin 325 mg Enteric Coated Tablet PO SCH (08:53)
[2018-06-04] MEDS: Potassium Chloride 10 MEQ TAB PO SCH (08:53)
--- NOTE | 2018-06-04 10:40 | PDOC.PN ---
- Subjective Encounter Start Date: 06/04/18 Encounter Start Time: 10:39 Patient seen and examined, no new issues or complaints. - Objective Resuscitation Status - Order Detail: 06/02/18 01:43 Resuscitation Status Routine Resuscitation Status: FULL: Full Resuscitation Vital Signs & Weight: Vital Signs (12 hours) Temp Pulse Resp BP Pulse Ox 06/04/18 08:53 62 06/04/18 07:14 98.3 F 62 16 111/58 L 96 06/04/18 04:30 98.9 F 60 16 107/57 L 97 06/03/18 23:27 98.8 F 60 115/59 L 98 Weight Weight 171 lb 3.2 oz I&O: 06/03/18 06/04/18 06/05/18 06:59 06:59 06:59 Intake Total 1280 1680 Output Total 1375 900 Balance -95 780 Result Diagrams: 06/02/18 05:29 06/02/18 05:29 Phys Exam - Physical Examination Constitutional: NAD HEENT: PERRLA, moist MMs, sclera anicteric Neck: no nodes, no JVD, supple Respiratory: no wheezing, no rales, no rhonchi Cardiovascular: RRR, no significant murmur, no rub Gastrointestinal: soft, non-tender, no distention, positive bowel sounds Musculoskeletal: no edema, pulses present Neurological: non-focal, normal sensation Psychiatric: normal affect, A&O x 3 Dx/Plan (1) Atypical chest pain Code(s): R07.89 - OTHER CHEST PAIN Status: Acute (2) Chronic systolic heart failure Code(s): I50.22 - CHRONIC SYSTOLIC (CONGESTIVE) HEART FAILURE Status: Acute (3) Congestive heart failure Code(s): I50.9 - HEART FAILURE, UNSPECIFIED Status: Chronic (4) GERD (gastroesophageal reflux disease) Code(s): K21.9 - GASTRO-ESOPHAGEAL REFLUX DISEASE WITHOUT ESOPHAGITIS Status: Chronic (5) Hyperlipidemia Code(s): E78.5 - HYPERLIPIDEMIA, UNSPECIFIED Status: Chronic (6) Hypertension Code(s): I10 - ESSENTIAL (PRIMARY) HYPERTENSION Status: Chronic - Plan * observe for now started on sotalol 48hrs ago will need 24 hrs more monitoring * PRN cough meds * no other changes in plan of care * DC plans in 24-48hrs if patient stable * case and plan d/w patient at [facility], she understood and agreed with this plan
[2018-06-04] MEDS: Latanoprost 0.005% Ophth Soln 2.5 ml Bottle EA EYE SCH (20:32)
--- NOTE | 2018-06-04 23:00 | EKG ---
Test Reason : Blood Pressure : / mmHG Vent. Rate : 070 BPM Atrial Rate : 070 BPM P-R Int : 000 ms QRS Dur : 160 ms QT Int : 430 ms P-R-T Axes : 000 -74 082 degrees QTc Int : 464 ms Ventricular-paced rhythm Abnormal ECG Confirmed by NICK BATISTA, RODNEY ([id number]), book or script editor MANE PÉREZ ([id number]) on 06/04/2018 10:59:17 PM Referred By: Confirmed By:RODNEY ROMERO MD
[2018-06-05] MEDS: Losartan 25 MG TAB PO SCH (08:47)
[2018-06-05] MEDS: Sotalol HCl 80 MG TAB PO SCH ×2 (08:47→20:06)
[2018-06-05] MEDS: Furosemide 20 MG TAB PO SCH ×2 (08:47→13:34)
[2018-06-05] MEDS: Apixaban 5 MG TAB PO SCH ×2 (08:47→20:12)
[2018-06-05] MEDS: Potassium Chloride 10 MEQ TAB PO SCH (08:47)
[2018-06-05] MEDS: Digoxin 0.125 MG TAB PO SCH (08:47)
[2018-06-05] MEDS: Aspirin 325 mg Enteric Coated Tablet PO SCH (08:47)
[2018-06-05] MEDS: Carvedilol 6.25 MG TAB PO SCH ×2 (08:48→16:19)
--- NOTE | 2018-06-05 12:24 | PDOC.PN ---
- Subjective Encounter Start Date: 06/05/18 Encounter Start Time: 12:22 Patient seen and examined, no new issues or problems in the past 24 hours. - Objective Resuscitation Status - Order Detail: 06/02/18 01:43 Resuscitation Status Routine Resuscitation Status: FULL: Full Resuscitation Vital Signs & Weight: Vital Signs (12 hours) Temp Pulse Resp BP Pulse Ox 06/05/18 08:47 59 L 06/05/18 07:38 99 06/05/18 07:23 98.2 F 59 L 16 106/63 100 06/05/18 03:45 98.4 F 60 12 106/62 99 Weight Weight 169 lb 8 oz I&O: 06/04/18 06/05/18 06/06/18 06:59 06:59 06:59 Intake Total 1680 450 Output Total 900 500 Balance 780 -50 Result Diagrams: 06/02/18 05:29 06/02/18 05:29 Phys Exam - Physical Examination Constitutional: NAD HEENT: PERRLA, moist MMs, sclera anicteric Neck: no nodes, no JVD, supple Respiratory: no wheezing, no rales, no rhonchi Cardiovascular: RRR, no significant murmur, no rub Gastrointestinal: soft, non-tender, no distention, positive bowel sounds Musculoskeletal: pulses present, edema present (trace) Dx/Plan (1) Atypical chest pain Code(s): R07.89 - OTHER CHEST PAIN Status: Acute (2) Chronic systolic heart failure Code(s): I50.22 - CHRONIC SYSTOLIC (CONGESTIVE) HEART FAILURE Status: Acute (3) Congestive heart failure Code(s): I50.9 - HEART FAILURE, UNSPECIFIED Status: Chronic (4) GERD (gastroesophageal reflux disease) Code(s): K21.9 - GASTRO-ESOPHAGEAL REFLUX DISEASE WITHOUT ESOPHAGITIS Status: Chronic (5) Hyperlipidemia Code(s): E78.5 - HYPERLIPIDEMIA, UNSPECIFIED Status: Chronic (6) Hypertension Code(s): I10 - ESSENTIAL (PRIMARY) HYPERTENSION Status: Chronic - Plan * EKG for tonight at 11pm and last one tmrw at 7am * If EKG shows acceptable qt interval can discharge in AM if ok with cardo * no other changes in plan of care * case and plan d/w patient at length, she understood and agreed with this plan.
[2018-06-05] MEDS: Latanoprost 0.005% Ophth Soln 2.5 ml Bottle EA EYE SCH (20:11)
[2018-06-06 05:14] LABS: Anion Gap 13 mmol/L (10-20); BUN (Urea Nitrogen) 16 mg/dL (9.8-20.1); Calc. Creatinine Clearance 79 mL/min (70-130); Calcium 9.7 mg/dL (7.8-10.44); Carbon Dioxide 28 mmol/L (23-31); Chloride 102 mmol/L (98-107); Estimated GFR-MDRD 83; Glucose 93 mg/dL (80-115); Potassium 4.6 mmol/L (3.5-5.1); Sodium 138 mmol/L (136-145)
[2018-06-06] MEDS ORDERED: Carvedilol 3.125 MG TAB PO SCH (08:00)
[2018-06-06] MEDS: Furosemide 20 MG TAB PO SCH ×2 (08:40→14:40)
[2018-06-06] MEDS: Losartan 25 MG TAB PO SCH (08:40)
[2018-06-06] MEDS: Aspirin 325 mg Enteric Coated Tablet PO SCH (08:40)
[2018-06-06] MEDS: Digoxin 0.125 MG TAB PO SCH (08:40)
[2018-06-06] MEDS: Apixaban 5 MG TAB PO SCH (08:40)
[2018-06-06] MEDS: Potassium Chloride 10 MEQ TAB PO SCH (08:41)
[2018-06-06] MEDS: Sotalol HCl 80 MG TAB PO SCH (08:41)
--- NOTE | 2018-06-06 13:55 | PDOC.PN ---
- Subjective Encounter Start Date: 06/06/18 Encounter Start Time: 13:54 Ms. Lucian Watson was seen today in follow-up of Atrial Fibrillation. She does ot have any complaints. - Objective Resuscitation Status - Order Detail: 06/02/18 01:43 Resuscitation Status Routine Resuscitation Status: FULL: Full Resuscitation MAR Reviewed: Yes Vital Signs & Weight: Vital Signs (12 hours) Temp Pulse Resp BP Pulse Ox 06/06/18 11:11 97.8 F 70 18 125/58 L 96 06/06/18 08:41 62 06/06/18 08:40 62 06/06/18 07:23 98.5 F 62 18 100/58 L 97 06/06/18 04:00 97.9 F 60 16 99/58 L 96 Weight Weight 170 lb 6.4 oz I&O: 06/05/18 06/06/18 06/07/18 06:59 06:59 06:59 Intake Total 450 290 Output Total 500 1100 Balance -50 -810 Result Diagrams: 06/02/18 05:29 06/06/18 04:14 Phys Exam - Physical Examination HEENT: PERRLA Respiratory: no wheezing, no rales, no rhonchi, clear to auscultation bilateral Cardiovascular: RRR, no significant murmur, no rub Gastrointestinal: soft, non-tender, no distention, positive bowel sounds Musculoskeletal: no edema Dx/Plan (1) Atrial fibrillation Code(s): I48.91 - UNSPECIFIED ATRIAL FIBRILLATION Status: Acute (2) Hyperlipidemia Code(s): E78.5 - HYPERLIPIDEMIA, UNSPECIFIED Status: Chronic (3) Hypertension Code(s): I10 - ESSENTIAL (PRIMARY) HYPERTENSION Status: Chronic - Plan * Atrial fibrillation- she has been stable on Sotalol * She can follow-up with EP in 1 week for possible ablation
--- NOTE | 2018-06-06 15:36 | PDOC.CTH ---
Cardiology Progress Note - Subjective EP progress note 06/06/18 Pt feeling good today. Uneventful weekend. - Objective Vital Signs Temp Pulse Resp BP Pulse Ox 06/06/18 11:11 97.8 F 70 18 125/58 L 96 06/06/18 08:41 62 06/06/18 08:40 62 06/06/18 07:23 98.5 F 62 18 100/58 L 97 06/06/18 04:00 97.9 F 60 16 99/58 L 96 Weight 170 lb 6.4 oz 06/05/18 06/06/18 06/07/18 06:59 06:59 06:59 Intake Total 450 290 Output Total 500 1100 Balance -50 -810 - Physical Examination General/Neuro: alert & oriented x3 Neck: no JVD present Lungs: CTA Heart: RRR Abdomen: no HSM, soft - Telemetry Telemetry Rhythm: SR - Labs Result Diagrams: 06/02/18 05:29 06/06/18 04:14 Troponin/CKMB Troponin I Less than 0.010 ng/mL (< 0.028) 06/01/18 22:39 - Assessment/Plan 1. Paroxysmal atrial fibrillation -started sotalol 06/03/18. Baseline QTc <400ms. Needs 12 lead EKG 2 hrs after first 6 doses of sotalol to monitor for QTc prolongation.No significna t prolongation is seen. 2. CHADS-VASC: 3 - started on eliquis 5mg BID. watch for signs of bleeding 3. Dual chamber ICD, medtronic - normal operation. Interrogation reviewed: no shocks. occasional NSVT. low burden AF 4. NSVT 5. Non ischemic cardiomyopathy Start sotalol tonight and will be managed by cardiology over the weekend. EKGs ordered through tomorrow evening. Continue eliquis. I will see her Wednesday.
[2018-06-06 16:04] VITALS: BP 118/64; TEMP 98.1
--- NOTE | 2018-06-06 17:07 | EKG ---
Test Reason : ROUTINE Blood Pressure : / mmHG Vent. Rate : 060 BPM Atrial Rate : 060 BPM P-R Int : 216 ms QRS Dur : 084 ms QT Int : 408 ms P-R-T Axes : 056 029 081 degrees QTc Int : 408 ms Electronic atrial pacemaker Low voltage QRS Nonspecific T wave abnormality Abnormal ECG Confirmed by DR. Tammy BAR (3) on 06/06/2018 5:06:42 PM Referred By: CORBY LUONG Confirmed By:DR. Tammy BAR
--- NOTE | 2018-06-06 17:11 | EKG ---
Test Reason : Blood Pressure : / mmHG Vent. Rate : 060 BPM Atrial Rate : 060 BPM P-R Int : 336 ms QRS Dur : 092 ms QT Int : 416 ms P-R-T Axes : -09 050 073 degrees QTc Int : 416 ms Atrial-paced rhythm with prolonged AV conduction Low voltage QRS ns T wave changes Abnormal ECG When compared with ECG of 02-JUN-2018 15:06, Electronic atrial pacemaker has replaced Sinus rhythm Confirmed by DR. Tammy BAR (3) on 06/06/2018 5:11:09 PM Referred By: MARY Confirmed By:DR. Tammy BAR
--- NOTE | 2018-06-06 17:13 | EKG ---
Test Reason : ROUTINE Blood Pressure : / mmHG Vent. Rate : 060 BPM Atrial Rate : 060 BPM P-R Int : 000 ms QRS Dur : 086 ms QT Int : 734 ms P-R-T Axes : 000 031 -77 degrees QTc Int : 734 ms Electronic atrial pacemaker Nonspecific T wave abnormality Prolonged QT Low voltage QRS Atrial paced with long MS Abnormal ECG Confirmed by DR. Tammy BAR (3) on 06/06/2018 5:13:35 PM Referred By: DR LUONG Confirmed By:DR. Tammy BAR
--- NOTE | 2018-06-07 13:02 | DIS ---
DATE OF ADMISSION: 06/01/2018 DATE OF DISCHARGE: 06/06/2018 PRIMARY CARE PHYSICIAN: Dr. Tanvir Cooley. DISCHARGE DISPOSITION: Home. PRIMARY DISCHARGE DIAGNOSES: 1. Paroxysmal atrial fibrillation. 2. Hypertension. 3. Cardiomyopathy. Her last ejection fraction was 20% to 25% in 2017. DISCHARGE MEDICATIONS: Include; 1. Sotalol 80 mg twice daily. 2. Carvedilol was decreased to 3.125 mg twice daily. 3. Potassium chloride 10 mEq daily. 4. Losartan 25 mg daily. 5. Furosemide 20 mg twice a day. 6. Aspirin 81 mg daily. 7. Eliquis 5 mg twice daily. 8. Latanoprost 2.5 mL drops at bedtime. 9. Digoxin 0.5 mg daily. CODE STATUS: Full code. ALLERGIES: CITRUS AND CITRUS DERIVATIVES. HOSPITAL COURSE: Ms. Lucian Watson is a very pleasant 68-year-old female, who presented to the emergency room with chest discomfort. She initially thought that her defibrillator may have fired. She was placed in observation and the defibrillator was interrogated. Cardiology as well as knitted goods shaper was consulted. She was found to be in atrial fibrillation and was started on Betapace. The defibrillator was interrogated and there was no evidence of any firing. After being placed on sotalol, she was monitored for the next few days and remained in sinus rhythm. The dose of carvedilol was decreased from 12.5 mg down to 3.125 mg twice a day and the plan was to consider outpatient ablation after she had been stabilized for a few days. She is therefore being discharged home and to follow up with Dr. Johnson in 1 to 2 weeks and also with her primary care physician, Dr. Cooley in 1 to 2 weeks as well. Job ID: [id number]
== END 2018-06-06 16:59 | disposition home or self-care (01) | DRG 309 ==
LOC: ERS 15:16 → 2SW 21:09 → OBSVTOIN 21:09
PROVIDERS: ADMIT Internal Medicine; ATTEND Internal Medicine
DX: I48.0 Paroxysmal atrial fibrillation (principal); I50.22 Chronic systolic (congestive) heart failure; I11.0 Hypertensive heart disease with heart failure; I42.9 Cardiomyopathy, unspecified; I47.2 Ventricular tachycardia; K21.9 Gastro-esophageal reflux disease without esophagitis; Z59.0 Homelessness; Z87.891 Personal history of nicotine dependence; Z91.018 Allergy to other foods; Z79.82 Long term (current) use of aspirin; Z79.899 Other long term (current) drug therapy; Z95.810 Presence of automatic (implantable) cardiac defibrillator
CPT/HCPCS: 36415; 71045; 80048; 80053; 81003; 83880; 84443; 84484; 85025; 93005; 93010; 96372; J1650

== ENCOUNTER 2018-08-17 11:54 | Outpatient (CLI) | payer MEDICARE ==
--- NOTE | 2018-08-17 12:20 | RAD ---
FXR Knee Rt 3 View: 08/17/2018 12:00 AM CLINICAL INDICATION: Right knee pain COMPARISON: None. FINDINGS: Bones: No acute fracture or subluxation. Joints: There is severe medial femorotibial joint compartmental narrowing. There are prominent margin al osteophytes affecting the major compartments of the right knee. There are multiple intra-articular bodies seen within the knee joint near Hoffa's fat pad and within the suprapatellar pouch.. Soft Tissue: Within normal limits. IMPRESSION: Moderate to severe osteoarthrosis of the right knee with multiple intra-articular bodies.
--- NOTE | 2018-08-17 12:22 | RAD ---
FXR Knee Lt 3 View: 08/17/2018 12:00 AM CLINICAL INDICATION: Left knee pain COMPARISON: None. FINDINGS: Bones: No acute osseous abnormality Joints: There is severe medial femorotibial joint compartmental narrowing with varus malalignment. Th ere are multiple intra-articular bodies seen within the region of a Caba's cyst one of the most prom inent is seen measuring 2 cm in length. There is prominent the fabella femoral osteoarthrosis. Soft Tissue: . IMPRESSION: Severe osteoarthrosis of the left knee with varus malalignment and intra-articular bodies.
== END 2018-08-17 11:55 | disposition home or self-care (01) ==
LOC: SCSRAD 11:54
PROVIDERS: ATTEND Family Medicine
DX: M25.561 Pain in right knee (principal); M25.562 Pain in left knee; M17.0 Bilateral primary osteoarthritis of knee

== ENCOUNTER 2018-08-25 19:14 | Emergency (ER) | payer MEDICARE ==
--- NOTE | 2018-08-25 19:34 | RAD ---
FPortable chest radiograph: 08/25/2018 COMPARISON: 06/01/2018 HISTORY:Chest tingling and chest pain FINDINGS: Stable left transvenous AICD. Stable prominent degenerative change of the glenohumeral join ts and acromioclavicular joints. No pneumothorax, pleural fluid, focal consolidation, or alveolar [place]. IMPRESSION: No focal consolidation or alveolar edema.
[2018-08-25 20:12] LABS: ALT (SGPT) 7 U/L (8-55); AST (SGOT) 11 U/L (5-34); Albumin 3.8 g/dL (3.4-4.8); Alkaline Phosphatase 81 U/L (40-150); Anion Gap 10 mmol/L (10-20); BUN (Urea Nitrogen) 21 mg/dL (9.8-20.1); Bilirubin, Total 0.3 mg/dL (0.2-1.2); Calc. Creatinine Clearance 0 mL/min (70-130); Calcium 9.5 mg/dL (7.8-10.44); Carbon Dioxide 26 mmol/L (23-31); Chloride 105 mmol/L (98-107); Estimated GFR-MDRD 64; Globulin 2.9 g/dL (2.4-3.5); Glucose 124 mg/dL (80-115); Lipase 73 U/L (8-78); Protein, Total 6.7 g/dL (6.0-8.3); Sodium 137 mmol/L (136-145)
[2018-08-25 20:13] LABS: Eosinophils 5 % (0-10); Lymphocytes 60 % (21-51); MDiff Complete? YES; Mean Corpuscular HGB CONC 33.1 g/dL (32.0-36.0); Mean Corpuscular Hemoglobin 31.4 pg (27.0-31.0); Mean Corpuscular Volume 94.8 fL (78.0-98.0); Mean Platelet Volume 7.4 fL (7.4-10.4); Monocytes 4 % (0-10); Neutrophil 31 % (42-75); Platelet Count 249 thou/uL (130-400); Platelet Morphology Comment Appears Adequate; RBC Distribution Width 12.2 % (11.5-14.5); Red Blood Cell (RBC) Count 3.81 mill/uL (4.20-5.40); White Blood Cell (WBC) Count 6.9 thou/uL (4.8-10.8)
[2018-08-25] MEDS ORDERED: Aspirin Chewable 81 MG TAB ONE (20:40)
[2018-08-25 23:14] LABS: Troponin I Less than 0.010 ng/mL (< 0.028)
== END 2018-08-25 23:44 | disposition home or self-care (01) ==
LOC: ERS 19:14
DX: J06.9 Acute upper respiratory infection, unspecified (principal); I11.0 Hypertensive heart disease with heart failure; I50.9 Heart failure, unspecified; K21.9 Gastro-esophageal reflux disease without esophagitis; Z87.891 Personal history of nicotine dependence; Z79.899 Other long term (current) drug therapy; Z79.82 Long term (current) use of aspirin; Z79.891 Long term (current) use of opiate analgesic
CPT/HCPCS: 36415; 71045; 80053; 83690; 83880; 84484; 85025; 87804; 93005; 96360

== ENCOUNTER 2019-04-03 13:41 | Emergency (ER) | payer MEDICARE ==
[~2019-04-03 13:41] MED LIST changes: -ISOVUE-370 76%-LOCM 1 ML ONE; +Iopamidol-370 76% 500 ML 1 ML ONE
[2019-04-03 14:15] LABS: #Basophils 0.1 thou/uL (0.0-0.2); #Eosinphils 0.2 thou/uL (0.0-0.7); #Lymphocytes 1.9 thou/uL (1.20-3.40); #Monocytes 0.1 thou/uL (0.11-0.59); #Neutrophils 3.9 thou/uL (1.40-6.50); %Basophils 1.6 % (0.0-1.0); %Eosinophils 2.5 % (0.0-10.0); %Lymphocytes 31.1 % (21.0-51.0); %Monocytes 1.8 % (0.0-10.0); Hemoglobin 13.8 g/dL (12.0-16.0); Mean Corpuscular HGB CONC 33.8 g/dL (32.0-36.0); Mean Corpuscular Hemoglobin 31.7 pg (27.0-31.0); Mean Corpuscular Volume 93.8 fL (78.0-98.0); Mean Platelet Volume 7.5 fL (7.4-10.4); Platelet Count 296 thou/uL (130-400); RBC Distribution Width 11.3 % (11.5-14.5); Red Blood Cell (RBC) Count 4.35 mill/uL (4.20-5.40); White Blood Cell (WBC) Count 6.2 thou/uL (4.8-10.8)
[2019-04-03 14:23] LABS: Bilirubin Negative (Negative); Blood, Urine Negative (Negative); Clarity Clear (Clear); Glucose, Urine (Dipstick) Normal (Negative); Leukocyte Negative Leu/uL (Negative); Nitrite Negative (Negative); Protein, Urine (Dipstick) 20 mg/dL (Neg-Trace); Urobilinogen Normal mg/dL (Less than 2)
[2019-04-03 14:33] LABS: ALT (SGPT) 8 U/L (8-55); AST (SGOT) 15 U/L (5-34); Albumin 4.4 g/dL (3.4-4.8); Alkaline Phosphatase 86 U/L (40-110); Anion Gap 13 mmol/L (10-20); BUN (Urea Nitrogen) 16 mg/dL (9.8-20.1); Bilirubin, Total 0.4 mg/dL (0.2-1.2); Calc. Creatinine Clearance 0 mL/min (70-130); Calcium 10.5 mg/dL (7.8-10.44); Carbon Dioxide 27 mmol/L (23-31); Chloride 106 mmol/L (98-107); Estimated GFR-MDRD 90; Globulin 3.2 g/dL (2.4-3.5); Glucose 113 mg/dL (80-115); Lipase 67 U/L (8-78); Potassium 4.1 mmol/L (3.5-5.1); Protein, Total 7.6 g/dL (6.0-8.3); Sodium 142 mmol/L (136-145)
--- NOTE | 2019-04-03 17:07 | CT ---
CT ABDOMEN WITH CONTRAST CT PELVIS WITH CONTRAST: DATE: 04/03/2019 HISTORY: 69-year-old female with left lower quadrant abdominal pain. TECHNIQUE: IV injection of iodinated contrast media: Administered Oral contrast media:Not administered FINDINGS: Liver: No focal solid mass. Wedge-shaped patchy region of high attenuation in hepatic segment IVb pro bably represents a perfusion anomaly. Multiple surgical clips in gallbladder fossa. Spleen: No splenomegaly.. Pancreas: No mass or surrounding fat stranding.. Adrenals: No mass.. Kidneys: No hydronephrosis or enhancement abnormalities.. Ureters: No dilation. Bladder: No pathology identified. Abdominal aorta: No aneurysm. Small bowel: No dilation. Colon: No adjacent fat stranding. Appendix: No dilation or adjacent fat stranding.. Free air: None. Free fluid: None. Lumbar spine: High-grade degenerative disc changes at all levels from L1-2 through L4-5. Severe bilat eral facet DJD at L4-5 and L5-S1. Severe central spinal canal stenosis at L3-4 and L4-5. High-grade neural foraminal stenosis bilaterally at L4-5 (severe) and on the right at L3-4. IMPRESSION: 1. No major pathology identified within abdominal cavity and pelvic cavity 2. Status post cholecystectomy. 3. High-grade lumbar spondylosis with severe central spinal canal stenosis and severe neural foramina l stenosis at levels mentioned above...
== END 2019-04-03 17:29 | disposition home or self-care (01) ==
LOC: ERS 13:41
DX: M54.16 Radiculopathy, lumbar region (principal); I11.0 Hypertensive heart disease with heart failure; I50.9 Heart failure, unspecified; Z87.891 Personal history of nicotine dependence; Z79.82 Long term (current) use of aspirin; Z79.899 Other long term (current) drug therapy
CPT/HCPCS: 36415; 74177; 80053; 81003; 83690; 85025; 96374; Q9967

== ENCOUNTER 2019-04-11 09:12 | Outpatient (CLI) | payer MEDICARE, OTHER ==
--- NOTE | 2019-04-11 11:30 | MMO ---
Bilateral MAMMO Bilat Screen [facility]. CLINICAL HISTORY: Patient is 69 years old and is seen for screening. The patient has no family history of breast cancer. The patient has no personal history of cancer. VIEWS: The views performed were: bilateral craniocaudal with tomosynthesis and bilateral mediolateral oblique with tomosynthesis. FILMS COMPARED: The present examination has been compared to a prior imaging study performed at [facility] on 01/28/2018. This study has been interpreted with the assistance of computer-aided detection. MAMMOGRAM FINDINGS: There are scattered fibroglandular densities. There is a stable oval mass seen in the upper-outer region of the left breast. There are no suspicious masses, suspicious calcifications, or new areas of architectural distortion. IMPRESSION: THERE IS NO MAMMOGRAPHIC EVIDENCE OF MALIGNANCY. A ROUTINE FOLLOW-UP MAMMOGRAM IN 1 YEAR IS RECOMMENDED. THE RESULTS OF THIS EXAM WERE SENT TO THE PATIENT. ACR BI-RADS Category 2 - Benign finding MAMMOGRAPHY NOTE: 1. A negative mammogram report should not delay a biopsy if a dominant of clinically suspicious mass is present. 2. Approximately 10% to 15% of breast cancers are not detected by mammography. 3. Adenosis and dense breasts may obscure an underlying neoplasm. Reported by: RAISA MCKEON MD Electonically Signed: [id number]
== END 2019-04-11 09:13 | disposition home or self-care (01) ==
LOC: BICMAMMO 09:12
PROVIDERS: ATTEND Family Medicine
DX: Z12.31 Encounter for screening mammogram for malignant neoplasm of breast (principal)
CPT/HCPCS: 77063; 77067

== ENCOUNTER 2019-04-14 18:04 | Emergency (ER) | payer MEDICARE | END 2019-04-14 19:25 | disposition home or self-care (01) | LOC: ERS 18:04 | DX: M25.562 Pain in left knee (principal) | CPT/HCPCS: 99283 ==

== ENCOUNTER 2019-07-27 12:26 | Outpatient (CLI) | payer MEDICARE ==
[2019-07-27 14:12] LABS: Hemoglobin 13.2 g/dL (12.0-16.0); Mean Corpuscular Hemoglobin 31.7 pg (27.0-31.0); Mean Corpuscular Volume 95.9 fL (78.0-98.0); Mean Platelet Volume 8.2 fL (7.4-10.4); Platelet Count 295 thou/uL (130-400); RBC Distribution Width 11.9 % (11.5-14.5); Red Blood Cell (RBC) Count 4.16 mill/uL (4.20-5.40); White Blood Cell (WBC) Count 5.8 thou/uL (4.8-10.8)
[2019-07-27 14:33] LABS: Anion Gap 10 mmol/L (10-20); BUN (Urea Nitrogen) 15 mg/dL (9.8-20.1); Calc. Creatinine Clearance 0 mL/min (70-130); Calcium 9.9 mg/dL (7.8-10.44); Carbon Dioxide 30 mmol/L (23-31); Chloride 106 mmol/L (98-107); Estimated GFR-MDRD Greater than 90; Glucose 119 mg/dL (80-115); Potassium 3.7 mmol/L (3.5-5.1); Sodium 142 mmol/L (136-145)
== END 2019-07-27 12:27 | disposition home or self-care (01) ==
LOC: LABBT 12:26
PROVIDERS: ATTEND Orthopaedic Surgery
DX: Z01.818 Encounter for other preprocedural examination (principal); M17.12 Unilateral primary osteoarthritis, left knee
CPT/HCPCS: 80048; 85027; 87081; 93005; 93010

== ENCOUNTER 2019-07-27 14:00 | Inpatient (IN) | payer MEDICARE ==
[2019-08-01] MEDS ORDERED: Lidocaine 1% (PF) 30 ML VIAL ONE (08:35)
[2019-08-01] MEDS ORDERED: Fentanyl 100 MCG/2 ML VIAL ONE ×4 (08:35→15:50)
[2019-08-01] MEDS ORDERED: Midazolam HCl 2 mg/2 ml Vial ONE (08:35)
[2019-08-01] MEDS ORDERED: Ropivacaine 0.2% HCl/PF 20 ML ONE (08:35)
[2019-08-01] MEDS ORDERED: Lidocaine 1% PF 5 ML VIAL ONE (09:33)
[2019-08-01] MEDS ORDERED: EPHEDRINE 25 MG/5 ML SYRINGE ONE (09:33)
[2019-08-01] MEDS ORDERED: Ropivacaine 0.2% HCl/PF (40 MG/20 ML VIAL) ONE (09:33)
[2019-08-01] MEDS ORDERED: PROPOFOL 200 MG/20 ML VIAL ONE (09:33)
[2019-08-01] MEDS ORDERED: Ropivacaine 0.5% HCl/PF (150 MG/30 ML VIAL) ONE (09:33)
[2019-08-01] MEDS ORDERED: Ondansetron PF 4 MG/2 ML Vial ONE (09:33)
[2019-08-01] MEDS ORDERED: PHENYLEPHRINE-NS 100 MCG/ML 10 ML SYRINGE ONE (09:33)
[2019-08-01] MEDS ORDERED: Dexamethasone 20 MG/5 ML VIAL ONE (09:33)
[2019-08-01] MEDS ORDERED: Neomycin-Polymyxin 1 ML AMP ONE (11:11)
[2019-08-01] MEDS ORDERED: Acetaminophen 325 MG TAB PO PRN (11:19)
[2019-08-01] MEDS ORDERED: Ondansetron PF 4 MG/2 ML Vial IVP PRN (11:19)
[2019-08-01] MEDS ORDERED: traMADol HCl 50 MG TAB PO PRN (11:19)
[2019-08-01] MEDS ORDERED: Promethazine HCl 25 MG/ML VIAL IM PRN (11:19)
[2019-08-01] MEDS ORDERED: Zolpidem Tartrate 5 MG TAB PO PRN (11:19)
[2019-08-01] MEDS ORDERED: Fentanyl 100 MCG/2 ML VIAL IV PRN (11:20)
[2019-08-01] MEDS ORDERED: HYDROcodone/Acetaminophen 10/325 mg Tablet PO PRN ×2 (14:14)
[2019-08-01] MEDS ORDERED: Acetaminophen 500 MG TAB PO PRN (14:14)
--- NOTE | 2019-08-01 15:30 | RAD ---
EXAM: LEFT KNEE TWO VIEWS: 08/01/19 HISTORY: Left total knee replacement. FINDINGS/IMPRESSION: Recent total left knee replacement changes. No dislocation or periprosthetic fracture. POS: [facility]
[2019-08-01] MEDS: Ketorolac Tromethamine 30 MG/ML VIAL IVP SCH ×3 (17:16→23:48)
[2019-08-01] MEDS: Carvedilol 3.125 MG TAB PO SCH (17:30)
[2019-08-01] MEDS: CEFAZOLIN 2 GM in Premix Bag 1 BAG IVPB SCH (17:31)
[2019-08-01 18:21] VITALS: BMI 34.7
[2019-08-01] MEDS: HYDROcodone/Acetaminophen 10/325 mg Tablet PO PRN (18:29)
--- NOTE | 2019-08-01 20:06 | OP ---
DATE OF PROCEDURE: 08/01/2019 PREOPERATIVE DIAGNOSIS: Severe arthritis, left knee. POSTOPERATIVE DIAGNOSIS: Severe arthritis, left knee. PROCEDURE PERFORMED: Left total knee replacement. ANESTHESIA: General. DESCRIPTION OF PROCEDURE: The patient was given preoperative IV antibiotics, taken to the operating room, placed in the supine position. Satisfactory general anesthesia was performed. The left lower extremity was sterilely prepped and draped in usual fashion. After exsanguination, tourniquet was raised to 300 mmHg. The patient had severe genu varus prior to surgery. A longitudinal incision was made over the anterior aspect of the knee. Medial parapatellar arthrotomy was performed and upon entering the knee joint, the patient had severe synovitis. Partial synovectomy was performed. There was osteochondral loose bodies that were removed from the anterior as well as the posterior aspect of the knee joint. The [employer] instrumentation was used and the distal femur initially was cut removing 10 mm off the distal aspect of the femur at a 5-degree valgus angle. There was noted to be severe arthritis in the medial compartment with moderately severe arthritis in the lateral compartment and patellofemoral joint. There was no anterior cruciate ligament. What was left at the medial and lateral menisci were excised. The tibia was brought forward. The medial aspect of the knee had significant wear and deterioration and a cut was made to remove just 2 mm off the most affected medial side. The proximal tibia was measured as a size 6 and the temporary base tray was pinned in place and a hole was made for the base plate pin. The distal femur was measured as a size 6. The cutting jig was placed over the distal femur and the cuts were made over the anterior, posterior, and chamfer cuts. The large spurs were removed with a rongeur. Other osteochondral loose bodies were removed from the posterior aspect of the knee. The soft tissues were balanced and the knee was trialed with a 19 mm trial for the tibial insert allowed for full extension of the knee and good stability. The undersurface of the patella was cut with the patellar jig and the 3 holes were made for the 29 mm Tri-Peg patella. The holes were made for the distal femoral prosthesis. All the trials were removed. The knee joint was copiously irrigated with antibiotic solution using the high-speed certified ethical hacker. The antibiotic impregnated methylmethacrylate was mixed and the tibial component was cemented into place. There was a size 6 thinned nonporous base plate. Excess methacrylate was removed. The 19 mm tibial insert was locked into place into the base plate. The porous size 6 femoral component was impacted over the distal femur. Knee was placed in the full extension and the 29 mm Tri-Peg dome patella was cemented into place. Knee joint again was copiously irrigated. Cement was allowed to harden and the knee joint was then closed using #2 Vicryl for the retinacular tissue, 0-Vicryl for the fat and subcutaneous tissue, and the skin was closed with skin clarisa. Sterile dressing was applied. The patient's tourniquet was released. The patient was awakened, extubated, and transferred to recovery room in stable condition. ESTIMATED BLOOD LOSS: Minimal. COMPLICATIONS: None. TOURNIQUET TIME: 67 minutes. Job ID: [id number]
--- NOTE | 2019-08-01 20:13 | PDOC.EVN ---
Event Note - Event Note Event Note: Called Dr. Perez r/t rui. Agrees to hold for now. ASA good for DVT prophylaxis. Mentioned patient had some abnormal pauses during surgery. Discussed AICD interrogation.
[2019-08-01] MEDS: Sotalol HCl 80 MG TAB PO SCH (20:33)
[2019-08-01] MEDS ORDERED: Furosemide 20 MG TAB PO SCH (21:00)
[2019-08-01] MEDS ORDERED: Apixaban 5 MG TAB PO SCH (21:00)
[2019-08-01] MEDS: Latanoprost 0.005% Ophth Soln 2.5 ml Bottle EA EYE SCH (21:52)
--- NOTE | 2019-08-01 23:24 | PDOC.HOSPP ---
- Subjective Encounter Date: 08/01/19 Encounter Time: 19:25 Subjective: Patient seen and examined. No new complaints. s/p Left total knee replacement. Consulted for medical management. - Objective Vital Signs & Weight: Vital Signs (12 hours) Temp Pulse Pulse Resp BP BP Pulse Ox 08/01/19 20:33 58 L 08/01/19 20:10 97 08/01/19 20:00 97.6 F 59 L 17 108/64 97 08/01/19 18:18 65 114/63 08/01/19 16:15 97.2 F L 61 16 124/80 95 Weight Weight 190 lb I&O: 07/31/19 08/01/19 08/02/19 06:59 06:59 06:59 Output Total 200 Balance -200 Additional Labs: reviewed pre op labs EKG Reviewed by me: Yes (PreOp) Hospitalist ROS - Review of Systems Constitutional: denies: fever, chills, sweats, weakness, malaise, other Respiratory: denies: cough, dry, shortness of breath, hemoptysis, SOB with excertion, pleuritic pain, sputum, wheezing, other Cardiovascular: denies: chest pain, palpitations, orthopnea, paroxysmal noc. dyspnea, edema, light headedness, other Gastrointestinal: denies: nausea, vomiting, abdominal pain, diarrhea, constipation, melena, hematochezia, other - Medication Medications: Active Medications Generic Name Dose Route Start Last Admin Trade Name Freq PRN Reason Stop Dose Admin Hydrocodone Bitart/Acetaminophen 1 tab 08/01/19 11:19 08/01/19 18:29 Manito 10/325 PO 1 tab Q4H PRN Administration Pain (1-3) Carvedilol 3.125 mg 08/01/19 17:00 08/01/19 17:30 Coreg PO 3.125 mg BID-WM SENTHIL Administration Cefazolin Sodium/Dextrose 2 gm 50 mls @ 100 mls/hr 08/01/19 18:00 08/01/19 17 :31 / Device IVPB 08/02/19 02:29 50 mls 0200,1000,1800 SENTHIL Administration Ketorolac Tromethamine 30 mg 08/01/19 12:00 08/01/19 17:31 Toradol IVP 08/03/19 06:01 30 mg Q6HR SENTHIL Administration Latanoprost 1 drop 08/01/19 21:00 08/01/19 21:52 Xalatan 0.005% Ophth Soln EA EYE Not Given HS SENTHIL Sotalol HCl 80 mg 08/01/19 21:00 08/01/19 20:33 Betapace PO 80 mg BID SENTHIL Administration - Exam Heart: RRR, no murmur, no gallops, no rubs Respiratory: CTAB, no wheezes, no rales, no ronchi Gastrointestinal: soft, non-tender, no guarding, no rigidity, diminished bowl sounds Psychiatric: normal affect, A&O x 3 Hosp A/P (1) Paroxysmal atrial fibrillation Code(s): I48.0 - PAROXYSMAL ATRIAL FIBRILLATION Status: Chronic Plan: Currently A paced will hold eliquis for now start ASA 81 mg for DVT prophylaxis Restart Coreg, losartan, sotalol (2) Glaucoma Code(s): H40.9 - UNSPECIFIED GLAUCOMA Status: Acute Plan: Restart eye drop medications (3) Chronic systolic heart failure Code(s): I50.22 - CHRONIC SYSTOLIC (CONGESTIVE) HEART FAILURE Status: Acute Plan: Restart coreg, losartan, sotalol Hold lasix for now. (4) GERD (gastroesophageal reflux disease) Code(s): K21.9 - GASTRO-ESOPHAGEAL REFLUX DISEASE WITHOUT ESOPHAGITIS Status: Chronic Plan: Restart protonix. (5) Hyperlipidemia Code(s): E78.5 - HYPERLIPIDEMIA, UNSPECIFIED Status: Chronic Plan: Does not take any medications for cholesterol. (6) Hypertension Code(s): I10 - ESSENTIAL (PRIMARY) HYPERTENSION Status: Chronic Plan: Restart coreg, losartan, sotalol Hold lasix for now - Plan Recheck BMP Mg and CBC in am Full code
[2019-08-02] MEDS: CEFAZOLIN 2 GM in Premix Bag 1 BAG IVPB SCH (02:43)
[2019-08-02] MEDS: traMADol HCl 50 MG TAB PO PRN ×2 (02:51→14:21)
[2019-08-02] MEDS: Ketorolac Tromethamine 30 MG/ML VIAL IVP SCH ×4 (05:40→23:08)
[2019-08-02 05:47] LABS: Hemoglobin 10.3 g/dL (12.0-16.0); Mean Corpuscular HGB CONC 33.6 g/dL (32.0-36.0); Mean Corpuscular Hemoglobin 32.4 pg (27.0-31.0); Mean Corpuscular Volume 96.4 fL (78.0-98.0); Mean Platelet Volume 8.1 fL (7.4-10.4); Platelet Count 228 thou/uL (130-400); RBC Distribution Width 11.8 % (11.5-14.5); Red Blood Cell (RBC) Count 3.18 mill/uL (4.20-5.40); White Blood Cell (WBC) Count 10.9 thou/uL (4.8-10.8)
[2019-08-02 06:13] LABS: Anion Gap 10 mmol/L (10-20); BUN (Urea Nitrogen) 15 mg/dL (9.8-20.1); Calc. Creatinine Clearance 102 mL/min (70-130); Calcium 8.8 mg/dL (7.8-10.44); Carbon Dioxide 26 mmol/L (23-31); Chloride 104 mmol/L (98-107); Estimated GFR-MDRD Greater than 90; Glucose 176 mg/dL (80-115); Magnesium 1.6 mg/dL (1.6-2.6); Potassium 4.3 mmol/L (3.5-5.1); Sodium 136 mmol/L (136-145)
[2019-08-02] MEDS: Ascorbic Acid 500 mg Chewable Tablet PO SCH (08:40)
[2019-08-02] MEDS: Multivitamin W/ Minerals 1 TAB PO SCH (08:40)
[2019-08-02] MEDS: Sotalol HCl 80 MG TAB PO SCH ×2 (08:40→21:27)
[2019-08-02] MEDS: Aspirin 81 mg Enteric Coated Tablet PO SCH (08:40)
[2019-08-02] MEDS: Carvedilol 3.125 MG TAB PO SCH ×2 (08:41→17:22)
[2019-08-02] MEDS: Potassium Chloride 10 MEQ TAB PO SCH (08:41)
[2019-08-02] MEDS: Losartan 25 MG TAB PO SCH (08:41)
[2019-08-02] MEDS: DorzolamidE/Timolol 2%/0.5% Ophth Soln 10 ml Bottle EA EYE SCH (09:47)
[2019-08-02] MEDS: prednisoLONE 1% Ophth Susp 5 ml Bottle EA EYE SCH (09:47)
[2019-08-02] MEDS: HYDROcodone/Acetaminophen 10/325 mg Tablet PO PRN ×2 (10:37→21:31)
[2019-08-02] MEDS: Ropivacaine HCl/PF 250 ML in Premix Bag 1 BAG NERVE BLCK SCH (14:15)
--- NOTE | 2019-08-02 16:20 | PRG ---
DATE OF SERVICE: 08/02/2019 SUBJECTIVE: The patient is 1 day status post left total knee replacement. She has block with indwelling catheter, which is providing her good pain relief. The patient at the time of making rounds is sitting up in a chair. OBJECTIVE: VITAL SIGNS: The patient has been afebrile. Vital signs have been stable. Her last blood pressure is 143/86. EXTREMITIES: Dressing is in place over the left knee. The patient is able to dorsiflex and plantarflex her left ankle with good strength. She has good peripheral pulses. LABORATORY DATA: White count 10.9, hemoglobin 10.3, and hematocrit 30.7. PLAN: The patient will continue with physical therapy and occupational therapy. The patient will be continued on the baby aspirin, but will hold the Eliquis until she is ready for discharge. Her plan is to go to a fdc facility after discharge and case management is working on that. Meantime, she will continue with physical therapy. Job ID: [id number]
[2019-08-02] MEDS ORDERED: Magnesium Sulfate 2 GM in Sodium Chloride 0.9% 100 ML IVPB SCH (21:15)
[2019-08-02] MEDS ORDERED: Magnesium 2 GM/50 ML 2 GM in Premix Bag 1 BAG IVPB SCH (21:30)
[2019-08-02] MEDS: Latanoprost 0.005% Ophth Soln 2.5 ml Bottle EA EYE SCH (21:36)
--- NOTE | 2019-08-02 23:45 | PDOC.HOSPP ---
- Subjective Encounter Date: 08/02/19 Encounter Time: 19:30 Subjective: Patient seen and examined for med mngt. No CP/SOB. Mild intermittent headache - short lasting. No photophobia. No new complaints. No overnight events - Objective Vital Signs & Weight: Vital Signs (12 hours) Temp Pulse Resp BP Pulse Ox 08/02/19 23:40 98.1 F 71 16 104/66 97 08/02/19 21:27 79 08/02/19 20:25 98.1 F 79 16 112/69 98 08/02/19 15:56 98 F 76 14 122/78 96 08/02/19 12:29 97.6 F 61 14 143/86 H 97 Weight Weight 190 lb I&O: 08/01/19 08/02/19 08/03/19 06:59 06:59 06:59 Intake Total 1850 Output Total 200 1050 Balance -200 800 Result Diagrams: 08/02/19 05:27 08/02/19 05:27 Additional Labs: Laboratory Tests 08/02/19 05:27 Magnesium 1.6 EKG Reviewed by me: Yes (Paced) Hospitalist ROS - Review of Systems Respiratory: denies: cough, dry, shortness of breath, hemoptysis, SOB with excertion, pleuritic pain, sputum, wheezing, other Cardiovascular: denies: chest pain, palpitations, orthopnea, paroxysmal noc. dyspnea, edema, light headedness, other - Medication Medications: Active Medications Generic Name Dose Route Start Last Admin Trade Name Freq PRN Reason Stop Dose Admin Hydrocodone Bitart/Acetaminophen 1 tab 08/01/19 11:19 08/02/19 21:31 [place] 10/325 PO 1 tab Q4H PRN Administration Pain (1-3) Hydrocodone Bitart/Acetaminophen 2 tab 08/01/19 11:19 08/02/19 10:37 [place] 10/325 PO 2 tab Q4H PRN Administration PAIN (4-6) Ascorbic Acid 250 mg 08/02/19 09:00 08/02/19 08:40 Vitamin C PO 250 mg DAILY SENTHIL Administration Aspirin 81 mg 08/02/19 09:00 08/02/19 08:40 Ecotrin PO 81 mg DAILY SENTHIL Administration Carvedilol 3.125 mg 08/01/19 17:00 08/02/19 17:22 Coreg PO 3.125 mg BID-WM SENTHIL Administration Dorzolamide/Timolol 1 drop 08/02/19 09:00 08/02/19 09:47 Cosopt 2-0.5% Ophth Soln EA EYE 1 drop DAILY SENTHIL Administration Ropivacaine 250 ml/ Device 250 mls @ 10 mls/hr 08/01/19 11:19 08/02/19 14:15 NERVE BLCK 08/04/19 11:18 250 mls INF SENTHIL Administration Iron/Minerals/Multivitamins 1 tab 08/02/19 09:00 08/02/19 08:40 Theragran M PO 1 tab DAILY SENTHIL Administration Ketorolac Tromethamine 30 mg 08/01/19 12:00 08/02/19 23:08 Toradol IVP 08/03/19 06:01 30 mg Q6HR SENTHIL Administration Latanoprost 1 drop 08/01/19 21:00 08/02/19 21:36 Xalatan 0.005% Ophth Soln EA EYE Not Given HS SENTHIL Losartan Potassium 25 mg 08/02/19 09:00 08/02/19 08:41 Cozaar PO 25 mg DAILY SENTHIL Administration Pantoprazole Sodium 40 mg 08/02/19 09:00 08/02/19 08:41 Protonix PO 40 mg DAILY SENTHIL Administration Potassium Chloride 10 meq 08/02/19 08:00 08/02/19 08:41 Klor-Con 10 PO 10 meq QAM-WM SENTHIL Administration Prednisolone Acetate 1 drop 08/02/19 09:00 08/02/19 09:47 Econopred Plus 1% Opth Susp EA EYE 1 drp DAILY SENTHIL Administration Sodium Chloride 10 ml 08/01/19 14:14 08/02/19 11:36 Flush - Normal Saline IVF 10 ml PRN PRN Administration Saline Flush Sotalol HCl 80 mg 08/01/19 21:00 08/02/19 21:27 Betapace PO 80 mg BID SENTHIL Administration Tramadol HCl 100 mg 08/01/19 11:19 08/02/19 14:21 Ultram PO 100 mg Q6H PRN Administration Moderate Pain 4-6 - Exam General Appearance: NAD Neck: supple, no JVD Heart: RRR, no gallops Respiratory: no wheezes, no rales, no ronchi Gastrointestinal: non-tender, non-distended Extremities: no edema Hosp A/P - Plan DVT proph w/SCDs Par Afib Hypomagnesemia Obesity BMI 34.8 Chronic systolic HF Glaucoma HTN HLD GERD PLAN: Replace Magnesium Cont Coreg/Sotalol Cont Losartan Cont PPI Cont PT DVT prophylaxis
[2019-08-03] MEDS: Ketorolac Tromethamine 30 MG/ML VIAL IVP SCH (05:40)
[2019-08-03 06:06] LABS: Hemoglobin 9.3 g/dL (12.0-16.0); Mean Corpuscular Hemoglobin 32.7 pg (27.0-31.0); Mean Corpuscular Volume 96.3 fL (78.0-98.0); Mean Platelet Volume 8.8 fL (7.4-10.4); Platelet Count 213 thou/uL (130-400); RBC Distribution Width 11.9 % (11.5-14.5); Red Blood Cell (RBC) Count 2.83 mill/uL (4.20-5.40); White Blood Cell (WBC) Count 9.8 thou/uL (4.8-10.8)
[2019-08-03] MEDS: Carvedilol 3.125 MG TAB PO SCH ×2 (07:41→17:06)
[2019-08-03] MEDS: HYDROcodone/Acetaminophen 10/325 mg Tablet PO PRN ×2 (07:41→13:03)
[2019-08-03] MEDS: Potassium Chloride 10 MEQ TAB PO SCH (07:41)
[2019-08-03] MEDS: DorzolamidE/Timolol 2%/0.5% Ophth Soln 10 ml Bottle EA EYE SCH (09:12)
[2019-08-03] MEDS: Aspirin 81 mg Enteric Coated Tablet PO SCH (09:13)
[2019-08-03] MEDS: Losartan 25 MG TAB PO SCH (09:14)
[2019-08-03] MEDS: Ascorbic Acid 500 mg Chewable Tablet PO SCH (09:14)
[2019-08-03] MEDS: prednisoLONE 1% Ophth Susp 5 ml Bottle EA EYE SCH (09:15)
[2019-08-03] MEDS: Multivitamin W/ Minerals 1 TAB PO SCH (09:15)
[2019-08-03] MEDS: Sotalol HCl 80 MG TAB PO SCH ×2 (09:15→21:47)
--- NOTE | 2019-08-03 10:18 | PRG ---
DATE OF SERVICE: 08/03/2019 SUBJECTIVE: Ms. Epstein is slowly improving with physical therapy. Still has a nerve block in, which is providing good pain relief for her left knee. OBJECTIVE: VITAL SIGNS: The patient is afebrile. Her last blood pressure was 106/60 and O2 saturation 98% on room air. LABORATORY DATA: White count 9.8, hemoglobin 9.3, and hematocrit 27.2. PLAN: The patient will require additional therapy to be more independent. We will check her blood count again tomorrow. Depending on how she does, she will either need to go to a group home facility or possibly should be able to go home with home health that will be determined tomorrow. Job ID: [id number]
[2019-08-03] MEDS: Ropivacaine HCl/PF 250 ML in Premix Bag 1 BAG NERVE BLCK SCH (12:53)
[2019-08-03] MEDS ORDERED: Polyethylene Glycol 3350 17 GM Packet PO PRN (13:57)
[2019-08-03] MEDS ORDERED: Senokot S 8.6-50 MG TAB PO SCH (14:00)
[2019-08-03] MEDS: Senokot S 8.6-50 MG TAB PO SCH (21:47)
[2019-08-03] MEDS: Latanoprost 0.005% Ophth Soln 2.5 ml Bottle EA EYE SCH (21:48)
[2019-08-04] MEDS: traMADol HCl 50 MG TAB PO PRN ×2 (00:22→05:56)
[2019-08-04 05:42] LABS: Hemoglobin 9.1 g/dL (12.0-16.0); Mean Corpuscular HGB CONC 33.6 g/dL (32.0-36.0); Mean Corpuscular Hemoglobin 32.5 pg (27.0-31.0); Mean Corpuscular Volume 96.6 fL (78.0-98.0); Mean Platelet Volume 8.6 fL (7.4-10.4); Platelet Count 209 thou/uL (130-400); RBC Distribution Width 11.9 % (11.5-14.5); White Blood Cell (WBC) Count 9.8 thou/uL (4.8-10.8)
[2019-08-04] MEDS: Aspirin 81 mg Enteric Coated Tablet PO SCH (08:47)
[2019-08-04] MEDS: Multivitamin W/ Minerals 1 TAB PO SCH (08:47)
[2019-08-04] MEDS: Ascorbic Acid 500 mg Chewable Tablet PO SCH (08:48)
[2019-08-04] MEDS: Potassium Chloride 10 MEQ TAB PO SCH (08:48)
[2019-08-04] MEDS: Senokot S 8.6-50 MG TAB PO SCH ×3 (08:49→20:24)
[2019-08-04] MEDS: Losartan 25 MG TAB PO SCH (08:49)
[2019-08-04] MEDS: Sotalol HCl 80 MG TAB PO SCH ×2 (08:50→20:23)
[2019-08-04] MEDS: Carvedilol 3.125 MG TAB PO SCH ×2 (08:51→17:02)
[2019-08-04] MEDS: prednisoLONE 1% Ophth Susp 5 ml Bottle EA EYE SCH (08:52)
[2019-08-04] MEDS: DorzolamidE/Timolol 2%/0.5% Ophth Soln 10 ml Bottle EA EYE SCH (08:52)
[2019-08-04] MEDS: HYDROcodone/Acetaminophen 10/325 mg Tablet PO PRN ×2 (17:01→21:21)
--- NOTE | 2019-08-04 17:13 | PRG ---
DATE OF SERVICE: 08/04/2019 SUBJECTIVE: The patient is 3 days status post left total knee replacement. She had no particular problems overnight. Pain in the left knee is gradually decreasing. OBJECTIVE: VITAL SIGNS: The patient is afebrile. Vital signs have been stable. EXTREMITIES: Left lower extremity is in good alignment and is neurovascularly intact. LABORATORY DATA: White count 9.8, hemoglobin 9.1, and hematocrit 27. PLAN: The patient will continue with physical therapy. She is scheduled now to go to [facility], and we are waiting the okay for her to be transferred to there, hopefully today, but if not, then probably not until Wednesday. Job ID: [id number]
[2019-08-04] MEDS: Latanoprost 0.005% Ophth Soln 2.5 ml Bottle EA EYE SCH (20:21)
--- NOTE | 2019-08-04 20:21 | PDOC.HOSPP ---
- Subjective Encounter Date: 08/04/19 Encounter Time: 08:00 Subjective: Patient seen and examined for med mngt. No new complaints. No overnight events - Objective Vital Signs & Weight: Vital Signs (12 hours) Temp Pulse Resp BP BP Pulse Ox 08/04/19 20:00 98.5 F 78 18 99/63 97 08/04/19 16:04 98.9 F 73 18 117/65 95 08/04/19 11:17 99.2 F 67 16 113/73 96 08/04/19 08:50 81 112/60 Weight Weight 190 lb I&O: 08/03/19 08/04/19 08/05/19 06:59 06:59 06:59 Intake Total 2300 1600 1950 Output Total 1450 Balance 850 1600 1950 Result Diagrams: 08/04/19 05:21 08/02/19 05:27 Hospitalist ROS - Review of Systems Respiratory: denies: cough, dry, shortness of breath, hemoptysis, SOB with excertion, pleuritic pain, sputum, wheezing, other Cardiovascular: denies: chest pain, palpitations, orthopnea, paroxysmal noc. dyspnea, edema, light headedness, other - Medication Medications: Active Medications Generic Name Dose Route Start Last Admin Trade Name Freq PRN Reason Stop Dose Admin Hydrocodone Bitart/Acetaminophen 1 tab 08/01/19 11:19 08/02/19 21:31 [place] 10/325 PO 1 tab Q4H PRN Administration Pain (1-3) Hydrocodone Bitart/Acetaminophen 2 tab 08/01/19 11:19 08/04/19 17:01 [place] 10/325 PO 2 tab Q4H PRN Administration PAIN (4-6) Ascorbic Acid 250 mg 08/02/19 09:00 08/04/19 08:48 Vitamin C PO 250 mg DAILY SENTHIL Administration Aspirin 81 mg 08/02/19 09:00 08/04/19 08:47 Ecotrin PO 81 mg DAILY SENTHIL Administration Carvedilol 3.125 mg 08/01/19 17:00 08/04/19 17:02 Coreg PO Not Given BID- SENTHIL Dorzolamide/Timolol 1 drop 08/02/19 09:00 08/04/19 08:52 Cosopt 2-0.5% Ophth Soln EA EYE 1 drop DAILY SENTHIL Administration Iron/Minerals/Multivitamins 1 tab 08/02/19 09:00 08/04/19 08:47 Theragran M PO 1 tab DAILY SENTHIL Administration Latanoprost 1 drop 08/01/19 21:00 08/03/19 21:48 Xalatan 0.005% Ophth Soln EA EYE Not Given HS SENTHIL Losartan Potassium 25 mg 08/02/19 09:00 08/04/19 08:49 Cozaar PO Not Given DAILY SENTHIL Pantoprazole Sodium 40 mg 08/02/19 09:00 08/04/19 08:49 Protonix PO 40 mg DAILY SENTHIL Administration Polyethylene Glycol 17 gm 08/03/19 13:57 08/03/19 14:30 Miralax PO 17 gm DAILY PRN Administration Constipation Potassium Chloride 10 meq 08/02/19 08:00 08/04/19 08:48 Klor-Con 10 PO 10 meq QAM-WM SENTHIL Administration Prednisolone Acetate 1 drop 08/02/19 09:00 08/04/19 08:52 Econopred Plus 1% Opth Susp EA EYE 1 drp DAILY SENTHIL Administration Senna/Docusate Sodium 2 tab 08/03/19 21:00 08/04/19 08:49 Senokot S PO 2 tab BID SENTHIL Administration Sodium Chloride 10 ml 08/01/19 14:14 08/02/19 11:36 Flush - Normal Saline IVF 10 ml PRN PRN Administration Saline Flush Sotalol HCl 80 mg 08/01/19 21:00 08/04/19 08:50 Betapace PO 80 mg BID SENTHIL Administration Tramadol HCl 100 mg 08/01/19 11:19 08/04/19 05:56 Ultram PO 100 mg Q6H PRN Administration Moderate Pain 4-6 - Exam General Appearance: NAD Heart: RRR, no gallops Respiratory: no wheezes, no rales Gastrointestinal: non-tender, non-distended, normal bowel sounds Extremities: no clubbing Neurological: no new deficit Hosp A/P - Plan DVT proph w/SCDs Par Atrial fib Chronic systolic HF Hypomagnesemia Glaucoma HTN HLD GERD Obesity BMI 34.8 PLAN: Cont Coreg Cont Sotalol Cont Losartan Cont PPI Await SNF placement
[2019-08-05] MEDS: HYDROcodone/Acetaminophen 10/325 mg Tablet PO PRN ×2 (03:42→17:09)
[2019-08-05 06:01] LABS: Hemoglobin 8.8 g/dL (12.0-16.0); Platelet Count 216 thou/uL (130-400)
[2019-08-05] MEDS: Multivitamin W/ Minerals 1 TAB PO SCH (08:28)
[2019-08-05] MEDS: Sotalol HCl 80 MG TAB PO SCH ×2 (08:28→20:26)
[2019-08-05] MEDS: Aspirin 81 mg Enteric Coated Tablet PO SCH (08:28)
[2019-08-05] MEDS: Ascorbic Acid 500 mg Chewable Tablet PO SCH (08:28)
[2019-08-05] MEDS: Potassium Chloride 10 MEQ TAB PO SCH (08:28)
[2019-08-05] MEDS: Carvedilol 3.125 MG TAB PO SCH ×2 (08:29→17:07)
[2019-08-05] MEDS: DorzolamidE/Timolol 2%/0.5% Ophth Soln 10 ml Bottle EA EYE SCH (08:33)
[2019-08-05] MEDS: Losartan 25 MG TAB PO SCH (08:34)
[2019-08-05] MEDS: Senokot S 8.6-50 MG TAB PO SCH ×2 (08:34→20:26)
[2019-08-05] MEDS: prednisoLONE 1% Ophth Susp 5 ml Bottle EA EYE SCH (08:34)
[2019-08-05] MEDS: traMADol HCl 50 MG TAB PO PRN (10:14)
--- NOTE | 2019-08-05 17:35 | PRG ---
DATE OF SERVICE: 08/05/2019 SUBJECTIVE: The patient is 4 days status post left total knee replacement. The patient was able to get up with physical therapy and walk in the [place] today. Her pain is gradually decreasing. OBJECTIVE: The patient's vital signs have been stable. She has been afebrile. Her last blood pressure was 125/68. LABORATORY DATA: This morning show hemoglobin 8.8 and hematocrit 26. PLAN: The patient will continue to work with Physical Therapy. She is planning on going to a care home at [place], and unfortunately we have run into the weekend, so she probably would not be able to go until Wednesday. Job ID: [id number]
[2019-08-05] MEDS: Latanoprost 0.005% Ophth Soln 2.5 ml Bottle EA EYE SCH (20:26)
[2019-08-06] MEDS: HYDROcodone/Acetaminophen 10/325 mg Tablet PO PRN ×4 (02:32→18:45)
[2019-08-06 04:16] LABS: Bilirubin Negative (Negative); Blood, Urine Negative (Negative); Glucose, Urine (Dipstick) Negative (Negative); Leukocyte Negative (Negative); Nitrite Negative (Negative); Protein, Urine (Dipstick) Negative (Neg-Trace); Urobilinogen 0.2 mg/dL (Less than 2)
[2019-08-06 04:38] LABS: Clarity Clear (Clear); Urine Culture Reflex No No
[2019-08-06 04:48] LABS: Bacteria/HPF None Seen HPF (None Seen); RBC/HPF 0-3 HPF (0-3); Squamous Epithelial 0-3 HPF (0-3); WBC/HPF 0-3 HPF (0-3)
[2019-08-06] MEDS: Potassium Chloride 10 MEQ TAB PO SCH (08:40)
[2019-08-06] MEDS: Aspirin 81 mg Enteric Coated Tablet PO SCH (08:40)
[2019-08-06] MEDS: Multivitamin W/ Minerals 1 TAB PO SCH (08:41)
[2019-08-06] MEDS: Ascorbic Acid 500 mg Chewable Tablet PO SCH (08:41)
[2019-08-06] MEDS: prednisoLONE 1% Ophth Susp 5 ml Bottle EA EYE SCH (08:42)
[2019-08-06] MEDS: DorzolamidE/Timolol 2%/0.5% Ophth Soln 10 ml Bottle EA EYE SCH (08:42)
[2019-08-06] MEDS: Senokot S 8.6-50 MG TAB PO SCH ×2 (10:30→20:58)
--- NOTE | 2019-08-06 13:39 | PRG ---
DATE OF SERVICE: 08/06/2019 SUBJECTIVE: The patient states that she is doing well. She has been able to demonstrate that she can independently get out of bed and ambulate with a walker. OBJECTIVE: VITAL SIGNS: The patient has been afebrile, blood pressure 115/71 and last time was 110/68, O2 saturation of 98% on room air. EXTREMITIES: The left lower extremity remains neurovascularly intact. PLAN: The patient will continue to work with Physical Therapy to become stable and as strong as possible. The patient is considering her options as far as going back to her home or possibly going to custodial facility. We will try to make final determination on that tomorrow. Job ID: [id number]
[2019-08-06] MEDS: Sotalol HCl 80 MG TAB PO SCH ×2 (14:10→20:15)
[2019-08-06] MEDS: Losartan 25 MG TAB PO SCH (14:10)
[2019-08-06] MEDS: Carvedilol 3.125 MG TAB PO SCH ×3 (14:10→18:58)
--- NOTE | 2019-08-06 14:33 | PDOC.HOSPP ---
- Subjective Encounter Date: 08/06/19 Encounter Time: 13:30 Subjective: Patient seen and examined for med mngt. Pain controlled. Had urinary freq last. No other complaints. No overnight events - Objective Vital Signs & Weight: Vital Signs (12 hours) Temp Pulse Resp BP Pulse Ox 08/06/19 14:10 61 08/06/19 10:15 98.2 F 61 16 110/68 98 08/06/19 08:00 63 L 08/06/19 07:29 98.1 F 63 14 95/63 99 08/06/19 03:35 98.9 F 90 16 115/71 96 Weight Weight 190 lb I&O: 08/05/19 08/06/19 08/07/19 06:59 06:59 06:59 Intake Total 1950 1550 Balance 1950 1550 Result Diagrams: 08/05/19 05:45 08/02/19 05:27 Hospitalist ROS - Review of Systems Respiratory: denies: cough, dry, shortness of breath, hemoptysis, SOB with excertion, pleuritic pain, sputum, wheezing, other Cardiovascular: denies: chest pain, palpitations, orthopnea, paroxysmal noc. dyspnea, edema, light headedness, other - Medication Medications: Active Medications Generic Name Dose Route Start Last Admin Trade Name Freq PRN Reason Stop Dose Admin Hydrocodone Bitart/Acetaminophen 1 tab 08/01/19 11:19 08/02/19 21:31 [place] 10/325 PO 1 tab Q4H PRN Administration Pain (1-3) Hydrocodone Bitart/Acetaminophen 2 tab 08/01/19 11:19 08/06/19 11:45 [place] 10/325 PO 2 tab Q4H PRN Administration PAIN (4-6) Ascorbic Acid 250 mg 08/02/19 09:00 08/06/19 08:41 Vitamin C PO 250 mg DAILY SENTHIL Administration Aspirin 81 mg 08/02/19 09:00 08/06/19 08:40 Ecotrin PO 81 mg DAILY SENTHIL Administration Carvedilol 3.125 mg 08/01/19 17:00 08/06/19 14:10 Coreg PO Not Given BID- SENTHIL Dorzolamide/Timolol 1 drop 08/02/19 09:00 08/06/19 08:42 Cosopt 2-0.5% Ophth Soln EA EYE 1 drop DAILY SENTHIL Administration Iron/Minerals/Multivitamins 1 tab 08/02/19 09:00 08/06/19 08:41 Theragran M PO 1 tab DAILY SENTHIL Administration Latanoprost 1 drop 08/01/19 21:00 08/05/19 20:26 Xalatan 0.005% Ophth Soln EA EYE 1 drop HS SENTHIL Administration Losartan Potassium 25 mg 08/02/19 09:00 08/06/19 14:10 Cozaar PO Not Given DAILY SENTHIL Pantoprazole Sodium 40 mg 08/02/19 09:00 08/06/19 08:41 Protonix PO 40 mg DAILY SENTHIL Administration Polyethylene Glycol 17 gm 08/03/19 13:57 08/03/19 14:30 Miralax PO 17 gm DAILY PRN Administration Constipation Potassium Chloride 10 meq 08/02/19 08:00 08/06/19 08:40 Klor-Con 10 PO 10 meq QAM-WM SENTHIL Administration Prednisolone Acetate 1 drop 08/02/19 09:00 08/06/19 08:42 Econopred Plus 1% Opth Susp EA EYE 1 drp DAILY SENTHIL Administration Senna/Docusate Sodium 2 tab 08/03/19 21:00 08/06/19 10:30 Senokot S PO Not Given BID SENTHIL Sodium Chloride 10 ml 08/01/19 14:14 08/02/19 11:36 Flush - Normal Saline IVF 10 ml PRN PRN Administration Saline Flush Sotalol HCl 80 mg 08/01/19 21:00 08/06/19 14:10 Betapace PO Not Given BID SENTHIL Tramadol HCl 100 mg 08/01/19 11:19 08/05/19 10:14 Ultram PO 100 mg Q6H PRN Administration Moderate Pain 4-6 - Exam General Appearance: NAD Heart: RRR, no gallops Respiratory: no wheezes, no ronchi Gastrointestinal: non-tender, non-distended, normal bowel sounds Extremities: no cyanosis Neurological: no new deficit Hosp A/P - Plan DVT proph w/SCDs Par Atrial fib Chronic systolic HF Hypomagnesemia Glaucoma HTN HLD GERD Obesity BMI 34.8 PLAN: UA negative Cont other meds as above Cont ASA/Coreg/Sotalol/Losartan Await SNF placement
[2019-08-06] MEDS: Latanoprost 0.005% Ophth Soln 2.5 ml Bottle EA EYE SCH (20:17)
[2019-08-06] MEDS: traMADol HCl 50 MG TAB PO PRN (22:48)
[2019-08-07] MEDS: HYDROcodone/Acetaminophen 10/325 mg Tablet PO PRN (06:49)
[2019-08-07 08:03] VITALS: TEMP 98.2
[2019-08-07] MEDS: Ascorbic Acid 500 mg Chewable Tablet PO SCH (08:20)
[2019-08-07] MEDS: Losartan 25 MG TAB PO SCH (08:20)
[2019-08-07] MEDS: Carvedilol 3.125 MG TAB PO SCH (08:21)
[2019-08-07] MEDS: Senokot S 8.6-50 MG TAB PO SCH (08:21)
[2019-08-07] MEDS: Potassium Chloride 10 MEQ TAB PO SCH (08:21)
[2019-08-07] MEDS: Sotalol HCl 80 MG TAB PO SCH (08:21)
[2019-08-07] MEDS: Aspirin 81 mg Enteric Coated Tablet PO SCH (08:21)
[2019-08-07] MEDS: Multivitamin W/ Minerals 1 TAB PO SCH (08:21)
[2019-08-07] MEDS: DorzolamidE/Timolol 2%/0.5% Ophth Soln 10 ml Bottle EA EYE SCH (08:22)
[2019-08-07] MEDS: prednisoLONE 1% Ophth Susp 5 ml Bottle EA EYE SCH (08:22)
[2019-08-07 11:54] VITALS: BP 129/86
--- NOTE | 2019-08-07 14:39 | DIS ---
DATE OF ADMISSION: 08/01/2019 DATE OF DISCHARGE: 08/07/2019 HISTORY OF PRESENT ILLNESS: Please see admission history and physical. HOSPITAL COURSE: The patient was worked up medically prior to surgery. She was admitted on the same day of surgery. She was given perioperative IV antibiotics, taken to operating room and under general anesthetic, the patient underwent left total knee replacement. Postoperatively, the patient worked with Physical and Occupational Therapy and by date of discharge, the patient was able to independently get out of bed and ambulate with a walker. She was able to fully weightbear on the left lower extremity. The left lower extremity remained neurovascularly intact. Her laboratory showed that the hemoglobin went to a low of 8.8 on postoperative day #4. The patient was not symptomatic with this anemia. The patient remained afebrile. Vital signs remained stable. Incision was healing well. The patient looked at possibly going to assisted, but by the time she was discharged, she was independent and will be discharged home. DISCHARGE DIAGNOSES: 1. Severe arthritis of left knee requiring total knee replacement. 2. Anemia secondary to expected blood loss from surgery. DISCHARGE MEDICATIONS: The patient will continue with her previous home medicine. She will start Eliquis tomorrow. She has been on low-dose aspirin to help with prevent DVTs. She will continue with her other home medicines. She will follow up in the office in one week, which would be almost two weeks from surgery. Job ID: [id number]
== END 2019-08-07 13:23 | disposition home or self-care (01) | DRG 470 ==
LOC: SURG A 08-01 07:22 → SJJU 08-01 16:49
PROVIDERS: ADMIT Orthopaedic Surgery; ATTEND Orthopaedic Surgery
PROC: 0SRD0J9 Replacement of Left Knee Joint with Synthetic Substitute, Cemented, Open Approach (ICD-10-PCS; principal; 2019-08-01)
DX: M17.12 Unilateral primary osteoarthritis, left knee (principal); I50.22 Chronic systolic (congestive) heart failure; D62 Acute posthemorrhagic anemia; I11.0 Hypertensive heart disease with heart failure; I48.0 Paroxysmal atrial fibrillation; H40.9 Unspecified glaucoma; E83.42 Hypomagnesemia; E78.5 Hyperlipidemia, unspecified; K21.9 Gastro-esophageal reflux disease without esophagitis; E66.9 Obesity, unspecified; Z68.34 Body mass index [BMI] 34.0-34.9, adult; Z98.51 Tubal ligation status; Z90.49 Acquired absence of other specified parts of digestive tract; Z95.0 Presence of cardiac pacemaker; Z79.01 Long term (current) use of anticoagulants
CPT/HCPCS: 36415; 80048; 81001; 83735; 85014; 85018; 85027; 85049; C1713; J0690; J1100; J1885; J2001; J2250; J2405; J2704; J2795; J3010; J3475

== ENCOUNTER 2020-09-02 09:47 | Outpatient (CLI) | payer MEDICARE | END 2020-09-02 09:48 | disposition home or self-care (01) | LOC: BICMAMMO 09:47 | PROVIDERS: ATTEND Family Medicine | DX: Z12.31 Encounter for screening mammogram for malignant neoplasm of breast (principal) | CPT/HCPCS: 77063; 77067 ==

== ENCOUNTER 2020-09-09 09:51 | Outpatient (CLI) | payer MEDICARE | END 2020-09-09 09:52 | disposition home or self-care (01) | LOC: BICCT 09:51 | PROVIDERS: ATTEND Family Medicine | DX: Z12.2 Encounter for screening for malignant neoplasm of respiratory organs (principal); Z87.891 Personal history of nicotine dependence | CPT/HCPCS: 71271 ==

== ENCOUNTER 2020-11-22 09:08 | Day surgery (SDC) | payer MEDICARE ==
[2020-11-21 11:03] VITALS: BMI 34.2
[2020-11-22] MEDS ORDERED: Ketamine 50 MG/ML (10ML VIAL) ONE (10:28)
[2020-11-22] MEDS ORDERED: PROPOFOL 200 MG/20 ML VIAL ONE (10:46)
[2020-11-22] MEDS ORDERED: Lidocaine 1% PF 5 ML VIAL ONE (10:46)
== END 2020-11-22 12:35 | disposition home or self-care (01) ==
LOC: SDC 09:08
PROVIDERS: ATTEND Internal Medicine
PROC: 0DB38ZX Excision of Lower Esophagus, Via Natural or Artificial Opening Endoscopic, Diagnostic (ICD-10-PCS; principal; 2020-11-22)
PROC: 0DB18ZX Excision of Upper Esophagus, Via Natural or Artificial Opening Endoscopic, Diagnostic (ICD-10-PCS; 2020-11-22)
PROC: 0DBH8ZX Excision of Cecum, Via Natural or Artificial Opening Endoscopic, Diagnostic (ICD-10-PCS; 2020-11-22)
DX: K63.5 Polyp of colon (principal); K57.30 Diverticulosis of large intestine without perforation or abscess without bleeding; K64.8 Other hemorrhoids; K21.00 Gastro-esophageal reflux disease with esophagitis, without bleeding; R13.10 Dysphagia, unspecified; Q43.8 Other specified congenital malformations of intestine; I11.0 Hypertensive heart disease with heart failure; I50.9 Heart failure, unspecified; E78.00 Pure hypercholesterolemia, unspecified; Z79.01 Long term (current) use of anticoagulants; Z79.82 Long term (current) use of aspirin; Z79.899 Other long term (current) drug therapy; Z91.018 Allergy to other foods; Z95.0 Presence of cardiac pacemaker
CPT/HCPCS: 88305; J2704

== ENCOUNTER 2021-07-01 11:16 | Outpatient (CLI) | payer MEDICARE ==
[2021-07-01 12:41] LABS: #Basophils 0.1 10x3/uL (0.0-0.2); #Eosinphils 0.4 10x3/uL (0.0-0.5); #Monocytes 0.5 10x3/uL (0.0-1.1); #Neutrophils 2.6 10x3/uL (1.5-8.4); %Lymphocytes 43.1 % (18.0-47.0); %Monocytes 7.3 % (0.0-10.0); %Neutrophils 41.4 % (40.0-75.0); Hemoglobin 12.8 g/dL (12.0-15.5); Mean Corpuscular HGB CONC 31.4 g/dL (32.0-36.0); Mean Corpuscular Hemoglobin 30.6 pg (27.0-33.0); Mean Corpuscular Volume 97.4 fl (81.6-98.3); Mean Platelet Volume 10.4 fl (7.4-10.4); Platelet Count 476 10x3/uL (150-450); RBC Distribution Width 12.7 % (11.5-14.5); Red Blood Cell (RBC) Count 4.18 10x6/uL (3.90-5.03); White Blood Cell (WBC) Count 6.2 10x3/uL (3.5-10.5)
[2021-07-01 13:04] LABS: ALT (SGPT) 12 U/L (8-55); AST (SGOT) 20 U/L (5-34); Albumin 3.9 g/dL (3.4-4.8); Alkaline Phosphatase 67 U/L (40-110); Anion Gap 13 mmol/L (10-20); BUN (Urea Nitrogen) 15 mg/dL (9.8-20.1); Bilirubin, Total 0.3 mg/dL (0.2-1.2); Calc. Creatinine Clearance 0 mL/min (70-130); Calcium 9.7 mg/dL (7.8-10.44); Carbon Dioxide 28 mmol/L (23-31); Chloride 107 mmol/L (98-107); Globulin 2.6 g/dL (2.4-3.5); Glucose 118 mg/dL (83-110); Potassium 4.7 mmol/L (3.5-5.1); Protein, Total 6.5 g/dL (5.8-8.1); Sodium 143 mmol/L (136-145)
[2021-07-01 23:10] LABS: SARS-CoV-2 PCR by NAA Not Detected (NotDetected)
== END 2021-07-01 11:17 | disposition home or self-care (01) ==
LOC: LABBT 11:16
PROVIDERS: ATTEND Internal Medicine Cardiovascular Disease
DX: Z01.818 Encounter for other preprocedural examination (principal); Z20.822 Contact with and (suspected) exposure to COVID-19
CPT/HCPCS: 80053; 85025; 93005; U0003; U0005; 93010

== ENCOUNTER 2021-09-23 09:53 | Outpatient (CLI) | payer MEDICARE ==
[2021-09-23 11:23] LABS: Anion Gap 13 mmol/L (10-20); BUN (Urea Nitrogen) 16 mg/dL (9.8-20.1); Calc. Creatinine Clearance 0 mL/min (70-130); Calcium 10.4 mg/dL (7.8-10.44); Carbon Dioxide 28 mmol/L (23-31); Chloride 106 mmol/L (98-107); Glucose 96 mg/dL (83-110); Potassium 5.4 mmol/L (3.5-5.1); Sodium 142 mmol/L (136-145)
[2021-09-23 22:45] LABS: SARS-CoV-2 PCR by NAA Not Detected (NotDetected)
== END 2021-09-23 09:54 | disposition home or self-care (01) ==
LOC: LABBT 09:53
PROVIDERS: ATTEND Internal Medicine Cardiovascular Disease
DX: Z01.812 Encounter for preprocedural laboratory examination (principal); Z20.822 Contact with and (suspected) exposure to COVID-19
CPT/HCPCS: 80048; U0003; U0005

== ENCOUNTER 2021-09-25 05:54 | Day surgery (SDC) | payer MEDICARE ==
[2021-09-24 09:40] VITALS: BMI 34.0
== END 2021-09-25 06:50 | disposition home or self-care (01) ==
LOC: SDC 05:54
PROVIDERS: ATTEND Internal Medicine Cardiovascular Disease
DX: I48.19 Other persistent atrial fibrillation (principal); I25.118 Atherosclerotic heart disease of native coronary artery with other forms of angina pectoris; I42.0 Dilated cardiomyopathy; I11.0 Hypertensive heart disease with heart failure; I50.9 Heart failure, unspecified; E78.00 Pure hypercholesterolemia, unspecified; K21.9 Gastro-esophageal reflux disease without esophagitis; Z53.8 Procedure and treatment not carried out for other reasons; Z87.891 Personal history of nicotine dependence; Z79.01 Long term (current) use of anticoagulants; Z79.899 Other long term (current) drug therapy; Z91.018 Allergy to other foods; Z95.810 Presence of automatic (implantable) cardiac defibrillator

== ENCOUNTER 2021-10-01 09:25 | Outpatient (CLI) | payer MEDICARE ==
[2021-10-01 11:55] LABS: #Basophils 0.1 10x3/uL (0.0-0.2); #Eosinphils 0.3 10x3/uL (0.0-0.5); #Monocytes 0.5 10x3/uL (0.0-1.1); #Neutrophils 2.6 10x3/uL (1.5-8.4); %Basophils 0.9 % (0.0-2.0); %Eosinophils 6.2 % (0.0-6.0); %Lymphocytes 37.3 % (18.0-47.0); %Monocytes 9.1 % (0.0-10.0); %Neutrophils 46.1 % (40.0-75.0); Hemoglobin 13.4 g/dL (12.0-15.5); Mean Corpuscular HGB CONC 32.1 g/dL (32.0-36.0); Mean Corpuscular Hemoglobin 30.3 pg (27.0-33.0); Mean Corpuscular Volume 94.6 fl (81.6-98.3); Mean Platelet Volume 10.3 fl (7.4-10.4); Platelet Count 507 10x3/uL (150-450); RBC Distribution Width 12.9 % (11.5-14.5); Red Blood Cell (RBC) Count 4.42 10x6/uL (3.90-5.03); White Blood Cell (WBC) Count 5.5 10x3/uL (3.5-10.5)
[2021-10-01 12:12] LABS: Anion Gap 16 mmol/L (10-20); BUN (Urea Nitrogen) 16 mg/dL (9.8-20.1); Calc. Creatinine Clearance 0 mL/min (70-130); Calcium 9.9 mg/dL (7.8-10.44); Carbon Dioxide 27 mmol/L (23-31); Chloride 103 mmol/L (98-107); Glucose 96 mg/dL (83-110); Potassium 4.5 mmol/L (3.5-5.1); Sodium 141 mmol/L (136-145)
[2021-10-01 22:04] LABS: SARS-CoV-2 PCR by NAA Not Detected (NotDetected)
== END 2021-10-01 09:26 | disposition home or self-care (01) ==
LOC: LABBT 09:25
PROVIDERS: ATTEND Internal Medicine Cardiovascular Disease
DX: Z01.812 Encounter for preprocedural laboratory examination (principal); Z20.822 Contact with and (suspected) exposure to COVID-19
CPT/HCPCS: 80048; 85025; U0003; U0005

== ENCOUNTER → 2021-10-03 | Day surgery (SDC) | payer MEDICARE ==
[2021-10-01 13:36] VITALS: BMI 34.0
[~2021-10-03] MED LIST changes: -Iopamidol-370 76% 500 ML 1 ML ONE; +Lidocaine 1% MPF 2 ML VIAL ONE; +PROPOFOL 20 ML ONE
== END ==
LOC: CCL 06:04
PROVIDERS: ATTEND Internal Medicine Cardiovascular Disease
PROC: B24BZZ4 Ultrasonography of Heart with Aorta, Transesophageal (ICD-10-PCS; principal; 2021-10-03)
DX: I48.0 Paroxysmal atrial fibrillation (principal); I34.0 Nonrheumatic mitral (valve) insufficiency; I70.0 Atherosclerosis of aorta
CPT/HCPCS: 93312; J2704

== ENCOUNTER 2021-11-25 21:44 | Observation (INO) | payer MEDICARE, OTHER ==
[2021-11-25 22:36] LABS: #Basophils 0.1 thou/uL (0.0-0.2); #Eosinphils 0.4 thou/uL (0.0-0.7); #Lymphocytes 2.2 thou/uL (1.20-3.40); #Monocytes 0.3 thou/uL (0.11-0.59); #Neutrophils 2.8 thou/uL (1.40-6.50); %Basophils 1.7 % (0.0-1.0); %Eosinophils 7.6 % (0.0-10.0); %Lymphocytes 37.7 % (21.0-51.0); %Monocytes 4.8 % (0.0-10.0); %Neutrophils 48.2 % (42.0-75.0); Hemoglobin 13.6 g/dL (12.0-16.0); Mean Corpuscular HGB CONC 31.9 g/dL (32.0-36.0); Mean Corpuscular Hemoglobin 30.6 pg (27.0-31.0); Mean Corpuscular Volume 95.9 fL (78.0-98.0); Mean Platelet Volume 8.6 fL (7.4-10.4); Platelet Count 374 thou/uL (130-400); RBC Distribution Width 13.4 % (11.5-14.5); Red Blood Cell (RBC) Count 4.45 mill/uL (4.20-5.40); White Blood Cell (WBC) Count 5.8 thou/uL (4.8-10.8)
[2021-11-26] LABS: Chloride 104 mmol/L (98-107); Potassium 4.1 mmol/L (3.5-5.1); Sodium 140 mmol/L (136-145)
[2021-11-26 00:01] LABS: Albumin 3.9 g/dL (3.4-4.8)
[2021-11-26 00:03] LABS: Calcium 10.1 mg/dL (7.8-10.44); Glucose 103 mg/dL (83-110)
[2021-11-26 00:04] LABS: Globulin 2.7 g/dL (2.4-3.5); Protein, Total 6.6 g/dL (5.8-8.1)
[2021-11-26 00:05] LABS: Anion Gap 14 mmol/L (10-20); Bilirubin, Total 0.9 mg/dL (0.2-1.2); Carbon Dioxide 26 mmol/L (23-31)
[2021-11-26 00:06] LABS: Alkaline Phosphatase 55 U/L (40-110)
[2021-11-26 00:07] LABS: Calc. Creatinine Clearance 0 mL/min (70-130); Estimated GFR 62
[2021-11-26 00:08] LABS: BUN (Urea Nitrogen) 16 mg/dL (9.8-20.1)
[2021-11-26 00:09] LABS: ALT (SGPT) 32 U/L (8-55); AST (SGOT) 27 U/L (5-34)
[2021-11-26] MEDS ORDERED: Furosemide 20 MG/2 ML VIAL ONE (00:46)
[2021-11-26] MEDS ORDERED: Furosemide 40 MG/4 ML VIAL ONE (00:46)
[2021-11-26 05:22] LABS: Troponin I 0.022 ng/mL (< 0.028)
[2021-11-26 06:25] LABS: SARS-CoV-2 NAA Rapid Test Not Detected (NotDetected)
[2021-11-26] MEDS: Apixaban 5 MG TAB PO SCH ×2 (09:59→20:39)
[2021-11-26] MEDS: Carvedilol 6.25 MG TAB PO SCH ×2 (09:59→20:39)
[2021-11-26] MEDS: Torsemide 10 MG TAB PO SCH (10:00)
[2021-11-26] MEDS: Rosuvastatin 20 MG TAB PO SCH (10:00)
[2021-11-26] MEDS ORDERED: Methyl Salicylate/Menthol 85 GM TUBE TOP PRN (12:39)
[2021-11-26] MEDS ORDERED: Gabapentin 100 MG CAP PO PRN (12:40)
[2021-11-26 18:18] VITALS: BMI 34.5
[2021-11-27 04:36] LABS: Anion Gap 13 mmol/L (10-20); BUN (Urea Nitrogen) 21 mg/dL (9.8-20.1); Calc. Creatinine Clearance 76 mL/min (70-130); Calcium 9.9 mg/dL (7.8-10.44); Carbon Dioxide 28 mmol/L (23-31); Chloride 103 mmol/L (98-107); Estimated GFR 72; Glucose 140 mg/dL (83-110); Potassium 3.8 mmol/L (3.5-5.1); Sodium 140 mmol/L (136-145)
[2021-11-27] MEDS: Rosuvastatin 20 MG TAB PO SCH (10:55)
[2021-11-27] MEDS: Apixaban 5 MG TAB PO SCH (10:56)
[2021-11-27] MEDS: Carvedilol 6.25 MG TAB PO SCH ×2 (10:56→17:00)
[2021-11-27] MEDS: Torsemide 10 MG TAB PO SCH (10:57)
[2021-11-27 17:20] VITALS: BP 97/54
[2021-11-27 17:24] VITALS: TEMP 98.7
== END 2021-11-27 19:30 | disposition home or self-care (01) ==
LOC: ERS 21:44 → ERHOLD 11-26 00:35 → 2NO 11-26 16:27
PROVIDERS: ADMIT Student in an Organized Health Care Education/Training Program; ATTEND Student in an Organized Health Care Education/Training Program
DX: R42 Dizziness and giddiness (principal); R55 Syncope and collapse; I11.0 Hypertensive heart disease with heart failure; I50.9 Heart failure, unspecified; I48.19 Other persistent atrial fibrillation; E78.5 Hyperlipidemia, unspecified; Z87.891 Personal history of nicotine dependence; Z79.01 Long term (current) use of anticoagulants; Z79.899 Other long term (current) drug therapy; Z91.018 Allergy to other foods; Z95.2 Presence of prosthetic heart valve; Z95.810 Presence of automatic (implantable) cardiac defibrillator; Z20.822 Contact with and (suspected) exposure to COVID-19
CPT/HCPCS: 71045; 71275; 80048; 80053; 83880; 84484 ×3; 85025; 93005; 94760; 96374; 99285; U0002; 36415; G0378; J1940

== ENCOUNTER 2022-03-03 13:01 | Outpatient (CLI) | payer OTHER ==
[2022-03-03 15:18] LABS: Hemoglobin 12.5 g/dL (12.0-15.5); Mean Corpuscular Hemoglobin 29.3 pg (27.0-33.0); Mean Corpuscular Volume 91.8 fl (81.6-98.3); Mean Platelet Volume 11.6 fl (7.4-10.4); Platelet Count 412 10x3/uL (150-450); RBC Distribution Width 15.1 % (11.5-14.5); Red Blood Cell (RBC) Count 4.26 10x6/uL (3.90-5.03); White Blood Cell (WBC) Count 5.3 10x3/uL (3.5-10.5)
[2022-03-03 15:25] LABS: INR-International Normal Ratio 1.6; PTT 32.2 sec (22.0-33.0); Prothrombin Time 16.5 sec (9.5-12.1)
[2022-03-03 15:34] LABS: ALT (SGPT) 36 U/L (8-55); AST (SGOT) 33 U/L (5-34); Albumin 3.9 g/dL (3.4-4.8); Alkaline Phosphatase 54 U/L (40-110); Anion Gap 14 mmol/L (10-20); BUN (Urea Nitrogen) 27 mg/dL (9.8-20.1); Bilirubin, Direct 0.8 mg/dL (0.1-0.3); Bilirubin, Total 1.6 mg/dL (0.2-1.2); Calc. Creatinine Clearance 0 mL/min (70-130); Calcium 9.8 mg/dL (7.8-10.44); Carbon Dioxide 28 mmol/L (23-31); Chloride 104 mmol/L (98-107); Estimated GFR 50; Glucose 112 mg/dL (83-110); Potassium 3.7 mmol/L (3.5-5.1); Protein, Total 6.2 g/dL (5.8-8.1); Sodium 142 mmol/L (136-145)
== END 2022-03-03 13:02 | disposition home or self-care (01) ==
LOC: LABBT 13:01
PROVIDERS: ATTEND Internal Medicine Cardiovascular Disease
DX: Z01.818 Encounter for other preprocedural examination (principal); Z20.822 Contact with and (suspected) exposure to COVID-19
CPT/HCPCS: 71046; 80048; 80076; 85027; 85610; 85730; 87811; 93005; 93010

== ENCOUNTER 2022-06-03 10:07 | Emergency (ER) | payer OTHER ==
[2022-06-03 10:54] LABS: #Eosinphils 0.2 thou/uL (0.0-0.7); #Lymphocytes 1.4 thou/uL (1.20-3.40); #Monocytes 0.4 thou/uL (0.11-0.59); #Neutrophils 2.1 thou/uL (1.40-6.50); %Basophils 0.1 % (0.0-1.0); %Monocytes 8.5 % (0.0-10.0); %Neutrophils 51.4 % (42.0-75.0); Hemoglobin 13.6 g/dL (12.0-16.0); Mean Corpuscular HGB CONC 30.8 g/dL (32.0-36.0); Mean Corpuscular Hemoglobin 26.3 pg (27.0-31.0); Mean Corpuscular Volume 85.5 fl (78.0-98.0); Mean Platelet Volume 10.5 fL (7.4-10.4); Platelet Count 306 10x3/uL (130-400); RBC Distribution Width 20.9 % (11.5-14.5); Red Blood Cell (RBC) Count 5.17 mill/uL (4.20-5.40); White Blood Cell (WBC) Count 4.1 10x3/uL (4.8-10.8)
[2022-06-03 11:08] LABS: ALT (SGPT) 13 U/L (8-55); AST (SGOT) 24 U/L (5-34); Albumin 4.1 g/dL (3.4-4.8); Alkaline Phosphatase 45 U/L (40-110); Anion Gap 13 mmol/L (10-20); BUN (Urea Nitrogen) 19 mg/dL (9.8-20.1); Calc. Creatinine Clearance 0 mL/min (70-130); Calcium 10.3 mg/dL (7.8-10.44); Carbon Dioxide 29 mmol/L (23-31); Chloride 103 mmol/L (98-107); Estimated GFR 50; Globulin 2.4 g/dL (2.4-3.5); Glucose 90 mg/dL (83-110); Potassium 4.1 mmol/L (3.5-5.1); Protein, Total 6.5 g/dL (5.8-8.1); Sodium 141 mmol/L (136-145)
[2022-06-03] MEDS ORDERED: Furosemide 40 MG/4 ML VIAL ONE (13:39)
== END 2022-06-03 15:10 | disposition home or self-care (01) ==
LOC: ERS 10:07
DX: I50.9 Heart failure, unspecified (principal); D72.819 Decreased white blood cell count, unspecified; Z79.01 Long term (current) use of anticoagulants; Z79.899 Other long term (current) drug therapy
CPT/HCPCS: 36415; 71045; 80053; 83880; 84484; 85025; 93005; 96374; J1940

== ENCOUNTER 2022-06-20 16:55 | Emergency (ER) | payer OTHER ==
[2022-06-20] MEDS ORDERED: Acetaminophen 500 MG TAB ONE (19:29)
== END 2022-06-20 20:51 | disposition home or self-care (01) ==
LOC: ERS 16:55
DX: S01.01XA Laceration without foreign body of scalp, initial encounter (principal); E78.5 Hyperlipidemia, unspecified; K21.9 Gastro-esophageal reflux disease without esophagitis; I50.9 Heart failure, unspecified; W22.8XXA Striking against or struck by other objects, initial encounter; Z79.01 Long term (current) use of anticoagulants; Z79.899 Other long term (current) drug therapy
CPT/HCPCS: 70450; 72125

== ENCOUNTER 2023-01-08 09:40 | Emergency (ER) | payer OTHER ==
[2023-01-08 10:56] LABS: SARS-CoV-2 NAA Rapid Test Not Detected (NotDetected)
== END 2023-01-08 11:14 | disposition home or self-care (01) ==
LOC: ERS 09:40
DX: J06.9 Acute upper respiratory infection, unspecified (principal); I48.91 Unspecified atrial fibrillation; E78.5 Hyperlipidemia, unspecified; K21.9 Gastro-esophageal reflux disease without esophagitis; I50.9 Heart failure, unspecified; Z79.01 Long term (current) use of anticoagulants; Z79.899 Other long term (current) drug therapy
CPT/HCPCS: 99283

== ENCOUNTER 2024-03-21 09:53 | Outpatient (CLI) | payer OTHER | END 2024-03-21 09:54 | disposition home or self-care (01) | LOC: BICMAMMO 09:53 | PROVIDERS: ATTEND Family Medicine | DX: Z12.31 Encounter for screening mammogram for malignant neoplasm of breast (principal); Z13.820 Encounter for screening for osteoporosis; M85.851 Other specified disorders of bone density and structure, right thigh; M85.852 Other specified disorders of bone density and structure, left thigh | CPT/HCPCS: 77063; 77067; 77080 ==